=== PATIENT | female | born 1950 | race Caucasian/White ===

== ENCOUNTER → 2021-06-02 11:30 | Outpatient (BNVA) | payer OTHER, SELFPAY | PROVIDERS: PCP Family Medicine; Visit Provider Psychiatry & Neurology Neurology | DX: G24.3 Spasmodic torticollis (principal); R25.1 Tremor, unspecified | CPT/HCPCS: 64616; 99212; J0585 ==

== ENCOUNTER → 2022-02-27 09:18 | Outpatient (BNVA) | payer OTHER, MEDICAID, SELFPAY | PROVIDERS: PCP Family Medicine; Visit Provider Psychiatry & Neurology Neurology | DX: G24.3 Spasmodic torticollis (principal); R25.1 Tremor, unspecified | CPT/HCPCS: 64616; 99211; J0585 ==

== ENCOUNTER → 2022-05-21 11:09 | Outpatient (BNVA) | payer OTHER, MEDICAID, SELFPAY | PROVIDERS: PCP Hospitalist; Visit Provider Psychiatry & Neurology Neurology | DX: G24.3 Spasmodic torticollis (principal); R51.9 Headache, unspecified; F17.210 Nicotine dependence, cigarettes, uncomplicated | CPT/HCPCS: 64616; 99212; J0585 ==

== ENCOUNTER 2022-10-08 10:41 | Outpatient (AMB) | payer OTHER, MEDICAID, SELFPAY ==
[2022-10-08 11:08] VITALS: BP 110/88; PULSE 92; O2SAT 96; BMI 30.5
--- NOTE | 2022-10-08 11:08 | A.OFFVIS_ITS ---
Intake Vital Signs 10/08/22 11:08 Height 5 ft Weight 156 lb 4 oz BMI 30.5 BP 110/88 Blood Pressure Location Rt brachial Position Sitting Pulse 92 Pulse Source Pulse Oximeter Pulse Oximetry (%) 96 Oxygen Delivery Method Room Air Intake Visit Reasons: botox (b&b)-confirmed Intake Note: Pt presents as a f/u for botox. Station Baggage Agent Required: No Allergies aripiprazole [From Abilify] Allergy (Intermediate, Verified 10/08/22 11:11) RASH acetaminophen [From Percocet] Allergy (Unknown, Verified 10/08/22 11:11) FALLS clozapine [From Clozaril] Allergy (Unknown, Verified 10/08/22 11:11) ELEVATED WBC codeine [Codeine] Allergy (Unknown, Verified 10/08/22 11:11) FALL Penicillins Allergy (Unknown, Verified 10/08/22 11:11) RASH Sulfa (Sulfonamide Antibiotics) Allergy (Unknown, Verified 10/08/22 11:11) RASH From Percocet Allergy (Unknown, Uncoded 10/08/22 11:11) FALLS From Vistaril Allergy (Unknown, Uncoded 10/08/22 11:11) HIVES From Flexeril Adverse Reaction (Unknown, Uncoded 10/08/22 11:11) ATAXIA Medication List - Last Reconciled 10/16/22 by Ayleen Bach MD albuterol sulfate 90 mcg/actuation 2 puffs inhalation Q6H PRN atorvastatin 40 mg PO DAILY benztropine 1 mg orally 1tab qam and 2tabs qhs; cholecalciferol (vitamin D3) 50 mcg PO DAILY clonazepam 0.25 mg PO Q8H PRN duloxetine 30 mg PO DAILY duloxetine 60 mg PO BEDTIME fluticasone propionate 50 mcg/actuation (Allergy Relief (fluticasone)) 1 spray intranasal DAILY gabapentin 300 mg PO TID levothyroxine 75 mcg PO DAILY montelukast 10 mg PO DAILY onabotulinumtoxinA (Botox) 100 units IM [id number] 3 months valbenazine (Ingrezza) 80 mg PO DAILY HPI HPI Comments History of Present Illness Details 72y/o female comes for treatment of her cervical dystonia and follow up of her tardive dyskinesia . Her neck movements improved with Botox. Her tremors are worse. she noticed severe worsening when she stopped ingrezza and wants to restart. h/o exposure to neuroleptics she could not tolerate gabapentin - made her off balance and oozy.she decreased it to 300mg tid ? Side effects including spread of toxin effect, dysphagia, breathing difficulties , bronchitis etc was discussed in detail and the patient agreed to the procedure.An informed consent was obtained ??? Botulinum toxin type A 100units X 1 -was diluted with 2 cc of normal saline at a concentration of 25 units in 0.5cc saline. Lot number C [id number] expiration 10/2024 ??? Muscles injected ??? Cristopher Splenius - 25 units each ??? Cristopher levator 25 units each ? Total used 100 units PFSH Medical History COPD (chronic obstructive pulmonary disease) Depression Frequent headaches GERD (gastroesophageal reflux disease) Hyperlipidemia Spasmodic torticollis Tremors of nervous system Surgical History History of back surgery Hx of cervical spine surgery Hx of cholecystectomy Family History Father Cancer Mother Cancer Social History Household Members: None Alcohol intake: never Patient Tobacco Use Status: Current everyday Tobacco user Tobacco use type: Cigarette Cigarette Packs Per Day: 1 Physical Exam Vital Signs: Last Vital Signs Pulse 92 10/08/22 11:08 BP 110/88 10/08/22 11:08 Pulse Ox 96 10/08/22 11:08 Oxygen Delivery Method Room Air 10/08/22 11:08 BMI result Body Mass Index 30.5 Const General: cooperative, healthy appearing, comfortable and no acute distress Nutritional Appearance: average body habitus Orientation/consciousness: patient oriented x3 Neck Other: mild right laterocollis Neuro Other: high amplitude postural tremors cristopher UE perioral movements Tongue movements. General: patient oriented x3 and tone normal Cognition (Neuro): normal cognition Gait exam (Neuro): Normal gait present Assessment & Plan Assessment & Plan (1) Spasmodic torticollis: Code(s): G24.3 - Spasmodic torticollis (2) Tremors of nervous system: Code(s): R25.1 - Tremor, unspecified Plan Patient tolerated the procedure well she will call with any side effects Medications: Refilled valbenazine (Ingrezza) 80 mg PO DAILY 30 caps 6RF Coding Level of Care Code Est Pt Level 1 (19476) Diagnoses Spasmodic torticollis G24.3 Tremors of nervous system R25.1
== END 2022-10-08 11:31 | disposition home or self-care (01) ==
PROVIDERS: PCP Hospitalist; Visit Provider Psychiatry & Neurology Neurology
DX: G24.3 Spasmodic torticollis (principal); R25.1 Tremor, unspecified

== ENCOUNTER → 2022-10-08 10:41 | Outpatient (BNVA) | payer OTHER, MEDICAID, SELFPAY | PROVIDERS: PCP Hospitalist; Visit Provider Psychiatry & Neurology Neurology | DX: G24.3 Spasmodic torticollis (principal) | CPT/HCPCS: 99211 ==

== ENCOUNTER 2023-04-19 10:14 | Outpatient (AMB) | payer OTHER, SELFPAY ==
--- NOTE | 2023-04-19 10:26 | A.OFFVIS_ITS ---
Intake Vital Signs 04/19/23 10:29 Height 5 ft Weight 154 lb BMI 30.1 BP 144/82 H Blood Pressure Location Rt brachial Position Sitting Respiration 16 Pulse 76 Pulse Source Pulse Oximeter Pulse Oximetry (%) 94 Oxygen Delivery Method Room Air Intake Visit Reasons: botox (b&b)-LVM Intake Note: Pt presents for Botox Injections. Material Movers Required: No Allergies aripiprazole [From Abilify] Allergy (Intermediate, Verified 04/19/23 10:28) RASH acetaminophen [From Percocet] Allergy (Unknown, Verified 04/19/23 10:28) FALLS clozapine [From Clozaril] Allergy (Unknown, Verified 04/19/23 10:28) ELEVATED WBC codeine [Codeine] Allergy (Unknown, Verified 04/19/23 10:28) FALL Penicillins Allergy (Unknown, Verified 04/19/23 10:28) RASH Sulfa (Sulfonamide Antibiotics) Allergy (Unknown, Verified 04/19/23 10:28) RASH From Percocet Allergy (Unknown, Uncoded 04/19/23 10:28) FALLS From Vistaril Allergy (Unknown, Uncoded 04/19/23 10:28) HIVES From Flexeril Adverse Reaction (Unknown, Uncoded 04/19/23 10:28) ATAXIA Medication List - Last Reconciled 04/19/23 by Ayleen Bach MD albuterol sulfate 90 mcg/actuation 2 puffs inhalation Q6H PRN atorvastatin 40 mg PO DAILY benztropine 1 mg orally 1tab qam and 2tabs qhs; cholecalciferol (vitamin D3) 50 mcg PO DAILY clonazepam 0.25 mg PO Q8H PRN deutetrabenazine (Austedo Tardive Dys Titratn Pk (Week 1-2)) PO PER PKG DIR duloxetine 30 mg PO DAILY duloxetine 60 mg PO BEDTIME fluticasone propionate 50 mcg/actuation (Allergy Relief (fluticasone)) 1 spray intranasal DAILY levothyroxine 75 mcg PO DAILY montelukast 10 mg PO DAILY onabotulinumtoxinA (Botox) 100 units IM [id number] 3 months valbenazine (Ingrezza) 80 mg PO DAILY HPI HPI Comments History of Present Illness Details 73y/o female comes for treatment of her cervical dystonia and follow up of her tardive dyskinesia . Her neck movements improved with Botox. Her tremors are worse. she is on ingrezza and wnats to try austedo h/o exposure to neuroleptics she could not tolerate gabapentin - made her off balance and oozy.she decreased it to 300mg tid she missed her last appointment due to aillness ? Side effects including spread of toxin effect, dysphagia, breathing difficulties , bronchitis etc was discussed in detail and the patient agreed to the procedure.An informed consent was obtained ??? Botulinum toxin type A 100units X 1 -was diluted with 2 cc of normal saline at a concentration of 25 units in 0.5cc saline. Lot number C [id number] expiration 05/2025 ??? Muscles injected ??? Cristopher Splenius - 25 units each ??? Cristopher levator 25 units each ? Total used 100 units PFSH Medical History Tremors of nervous system Spasmodic torticollis Hyperlipidemia GERD (gastroesophageal reflux disease) Frequent headaches Depression COPD (chronic obstructive pulmonary disease) Surgical History Hx of cervical spine surgery History of back surgery Hx of cholecystectomy Family History Father Cancer Mother Cancer Social History Household Members: None Alcohol intake: never Patient Tobacco Use Status: Current everyday Tobacco user Tobacco use type: Cigarette Cigarette Packs Per Day: 1 Physical Exam Vital Signs: Last Vital Signs Pulse 76 04/19/23 10:29 Resp 16 04/19/23 10:29 BP 144/82 H 04/19/23 10:29 Pulse Ox 94 04/19/23 10:29 Oxygen Delivery Method Room Air 04/19/23 10:29 BMI result Body Mass Index 30.1 Const General: cooperative, healthy appearing, comfortable and no acute distress Nutritional Appearance: average body habitus Orientation/consciousness: patient oriented x3 Neck Other: mild right laterocollis Neuro Other: high amplitude postural tremors cristopher UE perioral movements Tongue movements. General: patient oriented x3 and tone normal Cognition (Neuro): normal cognition Gait exam (Neuro): Normal gait present Office Procedures Botulinum toxin Injection 55086 - Dystonia Procedure code (CPT) selection complete Office Meds onabotulinumtoxinA 100 unit solution for injection Performing Provider: Ayleen Bach MD Performing Location: [facility] [place] [facility] Administered by: Ayleen Bach MD on 04/19/23 10:51 Dose Route Admin Location Dispensed Lot Number Expiration Date [facility] Surveyor Chain Helper 100 unit IM 100 units [id number] 05/09/25 4272-4589-18 [employer]/BOTOX Comments: see HPI Assessment & Plan Assessment & Plan (1) Spasmodic torticollis: Code(s): G24.3 - Spasmodic torticollis (2) Tremors of nervous system: Code(s): R25.1 - Tremor, unspecified Plan Patient tolerated the procedure well she will call with any side effects Orders: Orders AMB Botulinum toxin Injection Today G24.3 - Spasmodic torticollis Medications: New deutetrabenazine (Austedo Tardive Dys Titratn Pk (Week 1-2)) PO PER PKG DIR 28 ea 0RF Coding Level of Care Code Est Pt Level 1 (86401) Diagnoses Spasmodic torticollis G24.3 Tremors of nervous system R25.1 CPT Codes Botox Injection - Botox 4: 95244 - Dystonia ([id number])
[2023-04-19 10:29] VITALS: BP 144/82; PULSE 76; RESP 16; O2SAT 94; BMI 30.1
== END 2023-04-19 10:57 | disposition home or self-care (01) ==
PROVIDERS: PCP Hospitalist; Visit Provider Psychiatry & Neurology Neurology
DX: G24.3 Spasmodic torticollis (principal)
CPT/HCPCS: 64616

== ENCOUNTER → 2023-04-19 10:14 | Outpatient (BNVA) | payer OTHER, SELFPAY | PROVIDERS: PCP Hospitalist; Visit Provider Psychiatry & Neurology Neurology | DX: G24.3 Spasmodic torticollis (principal); R25.1 Tremor, unspecified | CPT/HCPCS: 64616; 99211; J0585 ==

== ENCOUNTER 2023-07-20 10:44 | Outpatient (AMB) | payer OTHER, SELFPAY ==
--- NOTE | 2023-07-20 10:50 | A.OFFVIS_ITS ---
Vital Signs 07/20/23 10:52 Height 5 ft Weight 155 lb BMI 30.3 BP 118/72 Blood Pressure Location Rt brachial Position Sitting Respiration 16 Pulse 70 Pulse Source Pulse Oximeter Pulse Oximetry (%) 97 Oxygen Delivery Method Room Air Intake Visit Reasons: Botox - Confirmed Intake Note: Pt presents to the office for her Botox injections. Coloring Room Worker Required: No Allergies aripiprazole [From Abilify] Allergy (Intermediate, Verified 07/20/23 10:51) RASH acetaminophen [From Percocet] Allergy (Unknown, Verified 07/20/23 10:51) FALLS clozapine [From Clozaril] Allergy (Unknown, Verified 07/20/23 10:51) ELEVATED WBC codeine [Codeine] Allergy (Unknown, Verified 07/20/23 10:51) FALL Penicillins Allergy (Unknown, Verified 07/20/23 10:51) RASH Sulfa (Sulfonamide Antibiotics) Allergy (Unknown, Verified 07/20/23 10:51) RASH From Percocet Allergy (Unknown, Uncoded 04/19/23 10:28) FALLS From Vistaril Allergy (Unknown, Uncoded 04/19/23 10:28) HIVES From Flexeril Adverse Reaction (Unknown, Uncoded 04/19/23 10:28) ATAXIA Medication List - Last Reconciled 07/20/23 by Ayleen Bach MD albuterol sulfate 90 mcg/actuation 2 puffs inhalation Q6H PRN atorvastatin 40 mg PO DAILY benztropine 1 mg orally 1tab qam and 2tabs qhs; cholecalciferol (vitamin D3) 50 mcg PO DAILY clonazepam 0.25 mg PO Q8H PRN deutetrabenazine (Austedo Tardive Dys Titratn Pk (Week 1-2)) PO PER PKG DIR duloxetine 30 mg PO DAILY duloxetine 60 mg PO BEDTIME fluticasone propionate 50 mcg/actuation (Allergy Relief (fluticasone)) 1 spray intranasal DAILY levothyroxine 75 mcg PO DAILY montelukast 10 mg PO DAILY onabotulinumtoxinA (Botox) 100 units IM [id number] 3 months valbenazine (Ingrezza) 80 mg PO DAILY HPI Comments Details: 73y/o female comes for treatment of her cervical dystonia and follow up of her tardive dyskinesia . Her neck movements improved with Botox. Her tremors are worse. she is on ingrezza and wnats to try austedo h/o exposure to neuroleptics she could not tolerate gabapentin - made her off balance and oozy.she decreased it to 300mg tid she missed her last appointment due to aillness ? Side effects including spread of toxin effect, dysphagia, breathing difficulties , bronchitis etc was discussed in detail and the patient agreed to the procedure.An informed consent was obtained ??? Botulinum toxin type A 100units X 1 -was diluted with 2 cc of normal saline at a concentration of 25 units in 0.5cc saline. Lot number [id number] expiration 07/2025 ??? Muscles injected ??? Cristopher Splenius - 25 units each ??? Cristopher levator 25 units each ? Total used 100 units [facility] Medical History (Updated 07/20/23 @ 11:57 by Ayleen Bach MD) Tardive dyskinesia Tremors of nervous system Spasmodic torticollis Hyperlipidemia GERD (gastroesophageal reflux disease) Frequent headaches Depression COPD (chronic obstructive pulmonary disease) Surgical History Hx of cervical spine surgery History of back surgery Hx of cholecystectomy Family History Father Cancer Mother Cancer Social History Household Members: None Alcohol intake: never Patient Tobacco Use Status: Current everyday Tobacco user Tobacco use type: Cigarette Cigarette Packs Per Day: 1 Physical Exam Vital Signs: Last Vital Signs Pulse 70 07/20/23 10:52 Resp 16 07/20/23 10:52 BP 118/72 07/20/23 10:52 Pulse Ox 97 07/20/23 10:52 Oxygen Delivery Method Room Air 07/20/23 10:52 BMI result Body Mass Index 30.3 Const General: cooperative, healthy appearing, comfortable and no acute distress Nutritional Appearance: average body habitus Orientation/consciousness: patient oriented x3 Neck Other: mild right laterocollis Neuro Other: high amplitude postural tremors cristopher UE perioral movements Tongue movements. General: patient oriented x3 and tone normal Cognition (Neuro): normal cognition Gait exam (Neuro): Normal gait present Office Procedures Botulinum toxin Injection 81790 - Dystonia Procedure code (CPT) selection complete Office Meds onabotulinumtoxinA 100 unit solution for injection Performing Provider: Ayleen Bach MD Performing Location: [facility] [place] [facility] [place] [facility] Administered by: Ayleen Bach MD on 07/20/23 12:10 Dose Route Admin Location Dispensed Lot Number Expiration Date [employer] 100 unit IM 100 units [id number] 07/09/25 5949-5412-72 [employer]ERGAN/BOTOX Comments: see HPI Assessment & Plan Assessment & Plan (1) Spasmodic torticollis: Code(s): G24.3 - Spasmodic torticollis Category: Medical (2) Tremors of nervous system: Code(s): R25.1 - Tremor, unspecified Category: Medical (3) Tardive dyskinesia: Code(s): G24.01 - Drug induced subacute dyskinesia Category: Medical Plan Patient tolerated the procedure well she will call with any side effects Orders: Orders AMB Botulinum toxin Injection Today G24.3 - Spasmodic torticollis Medications: New onabotulinumtoxinA 100 units IM ONCE 1 ea 0RF spasmodic torticollis G24.3 - Spasmodic torticollis Coding Level of Care Code Est Pt Level 1 (82493) Diagnoses Spasmodic torticollis G24.3 Tremors of nervous system R25.1 Tardive dyskinesia G24.01 CPT Codes Botox Injection - Botox 4: 88458 - Dystonia ([id number])
[2023-07-20 10:52] VITALS: BP 118/72; PULSE 70; RESP 16; O2SAT 97; BMI 30.3
== END 2023-07-20 11:25 | disposition home or self-care (01) ==
PROVIDERS: PCP Hospitalist; Visit Provider Psychiatry & Neurology Neurology
DX: G24.3 Spasmodic torticollis (principal)
CPT/HCPCS: 64616

== ENCOUNTER → 2023-07-20 10:44 | Outpatient (BNVA) | payer OTHER, SELFPAY | PROVIDERS: PCP Hospitalist; Visit Provider Psychiatry & Neurology Neurology | DX: G24.3 Spasmodic torticollis (principal); G24.01 Drug induced subacute dyskinesia | CPT/HCPCS: 64616; 99211; J0585 ==

== ENCOUNTER 2023-12-20 08:23 | Outpatient (AMB) | payer OTHER, SELFPAY ==
[2023-12-20 08:24] VITALS: BMI 30.3
--- NOTE | 2023-12-20 08:24 | A.OFFVIS_ITS ---
Vital Signs 12/20/23 08:24 Height 5 ft Weight 155 lb BMI 30.3 Intake Visit Reasons: BOTOX Intake Note: Patient presents for botox Allergies aripiprazole [From Abilify] Allergy (Intermediate, Verified 12/20/23 08:28) RASH acetaminophen [From Percocet] Allergy (Unknown, Verified 12/20/23 08:28) FALLS clozapine [From Clozaril] Allergy (Unknown, Verified 12/20/23 08:28) ELEVATED WBC codeine [Codeine] Allergy (Unknown, Verified 12/20/23 08:28) FALL Penicillins Allergy (Unknown, Verified 12/20/23 08:28) RASH Sulfa (Sulfonamide Antibiotics) Allergy (Unknown, Verified 12/20/23 08:28) RASH From Percocet Allergy (Unknown, Uncoded 12/20/23 08:28) FALLS From Vistaril Allergy (Unknown, Uncoded 12/20/23 08:28) HIVES From Flexeril Adverse Reaction (Unknown, Uncoded 12/20/23 08:28) ATAXIA HPI Comments Details: 73y/o female comes for treatment of her cervical dystonia and follow up of her tardive dyskinesia . Her neck movements improved with Botox. Her tremors are worse. she is on ingrezza and wnats to try austedo h/o exposure to neuroleptics she could not tolerate gabapentin - made her off balance and oozy.she decreased it to 300mg tid she missed her last appointment due to aillness ? Side effects including spread of toxin effect, dysphagia, breathing difficulties , bronchitis etc was discussed in detail and the patient agreed to the procedure.An informed consent was obtained ??? Botulinum toxin type A 100units X 1 -was diluted with 2 cc of normal saline at a concentration of 25 units in 0.5cc saline. Lot number C [id number] expiration 07/2025 ??? Muscles injected ??? Cristopher Splenius - 25 units each ??? Cristopher levator 25 units each ? Total used 100 units [facility] Medical History Tardive dyskinesia Tremors of nervous system Spasmodic torticollis Hyperlipidemia GERD (gastroesophageal reflux disease) Frequent headaches Depression COPD (chronic obstructive pulmonary disease) Surgical History Hx of cervical spine surgery History of back surgery Hx of cholecystectomy Family History Father Cancer Mother Cancer Social History Household Members: None Alcohol intake: never Patient Tobacco Use Status: Current everyday Tobacco user Tobacco use type: Cigarette Cigarette Packs Per Day: 1 Physical Exam Vital Signs: BMI result Body Mass Index 30.3 Office Procedures Botulinum toxin Injection 72217 - Dystonia Procedure code (CPT) selection complete Office Meds onabotulinumtoxinA 100 unit solution for injection Performing Provider: Ayleen Bach MD Performing Location: [facility] [place] [facility] Administered by: Ayleen Bach MD on 12/21/23 15:43 Dose Route Admin Location Dispensed Lot Number Expiration Date [place] [employer] Director 100 unit IM 100 units [id number] [employer] Comments: see HPI Assessment & Plan Assessment & Plan (1) Spasmodic torticollis: Code(s): G24.3 - Spasmodic torticollis Category: Medical (2) Tremors of nervous system: Code(s): R25.1 - Tremor, unspecified Category: Medical (3) Tardive dyskinesia: Code(s): G24.01 - Drug induced subacute dyskinesia Category: Medical Plan Patient tolerated the procedure well she will call with any side effects Orders: Orders AMB Botulinum toxin Injection 12/20/23 G24.3 - Spasmodic torticollis Medications: New onabotulinumtoxinA 100 units IM ONCE 1 ea 0RF spasmodic torticollis G24.3 - Spasmodic torticollis Coding Level of Care Code Est Pt Level 1 (05260) Diagnoses Spasmodic torticollis G24.3 Tremors of nervous system R25.1 Tardive dyskinesia G24.01 CPT Codes Botox Injection - Botox 4: 25443 - Dystonia ([id number])
== END 2023-12-20 08:44 | disposition home or self-care (01) ==
PROVIDERS: PCP Hospitalist; Visit Provider Psychiatry & Neurology Neurology
DX: G24.3 Spasmodic torticollis (principal)
CPT/HCPCS: 64616

== ENCOUNTER → 2023-12-20 08:23 | Outpatient (BNVA) | payer OTHER, SELFPAY | PROVIDERS: PCP Hospitalist; Visit Provider Psychiatry & Neurology Neurology | DX: G24.3 Spasmodic torticollis (principal); G24.01 Drug induced subacute dyskinesia | CPT/HCPCS: 64616; 99211; J0585 ==

== ENCOUNTER 2024-11-14 09:00 | Outpatient (AMB) | payer OTHER, SELFPAY ==
--- NOTE | 2024-11-14 09:04 | A.OFFVIS_ITS ---
Vital Signs 11/14/24 09:05 Height 5 ft Weight 135 lb 6 oz BMI 26.4 BP 102/64 Blood Pressure Location Rt brachial Position Sitting Pulse 85 Pulse Source Pulse Oximeter Pulse Oximetry (%) 98 Oxygen Delivery Method Room Air Intake Visit Reasons: Botox Intake Note: Botox 100 Electrical Research Engineer Required: No Accompanied by: Self / Same As Patient Allergies aripiprazole (From Abilify) Allergy (Intermediate, Verified 11/14/24 09:04) RASH acetaminophen (From Percocet) Allergy (Unknown, Verified 11/14/24 09:04) FALLS clozapine (From Clozaril) Allergy (Unknown, Verified 11/14/24 09:04) ELEVATED WBC codeine (Codeine) Allergy (Unknown, Verified 11/14/24 09:04) FALL Penicillins Allergy (Unknown, Verified 11/14/24 09:04) RASH Sulfa (Sulfonamide Antibiotics) Allergy (Unknown, Verified 11/14/24 09:04) RASH From Percocet Allergy (Unknown, Uncoded 12/20/23 08:28) FALLS From Vistaril Allergy (Unknown, Uncoded 12/20/23 08:28) HIVES From Flexeril Adverse Reaction (Unknown, Uncoded 12/20/23 08:28) ATAXIA Medication List - Last Reconciled 11/14/24 by Ayleen Bach MD albuterol sulfate 90 mcg/actuation 2 puffs inhalation Q6H PRN atorvastatin 40 mg PO DAILY clonazepam 0.5 mg PO TID PRN deutetrabenazine ER (Austedo XR) 12 mg PO DAILY duloxetine 60 mg PO BEDTIME levothyroxine 50 mcg PO QAM metformin 500 mg PO BID omeprazole 20 mg PO DAILY HPI Comments Details: 74y/o female comes for treatment of her cervical dystonia and follow up of her tardive dyskinesia . Her neck movements improved with Botox. Her tremors are worse. she is on ingrezza and wnats to try austedo h/o exposure to neuroleptics she could not tolerate gabapentin - made her off balance and oozy.she decreased it to 300mg tid she missed her last appointment due to aillness ? Side effects including spread of toxin effect, dysphagia, breathing difficulties , bronchitis etc was discussed in detail and the patient agreed to the procedure.An informed consent was obtained ??? Botulinum toxin type A 100units X 1 -was diluted with 2 cc of normal saline at a concentration of 25 units in 0.5cc saline. Lot number [id number] expiration 12/2026 ??? Muscles injected ??? Cristopher Splenius - 25 units each ??? Cristopher levator 25 units each ? Total used 100 units PFSH Medical History Tardive dyskinesia Tremors of nervous system Spasmodic torticollis Hyperlipidemia GERD (gastroesophageal reflux disease) Frequent headaches Depression COPD (chronic obstructive pulmonary disease) Surgical History Hx of cervical spine surgery History of back surgery Hx of cholecystectomy Family History Father Cancer Mother Cancer Social History Household Members: None Alcohol intake: never Patient Tobacco Use Status: Current everyday Tobacco user Tobacco use type: Cigarette Cigarette Packs Per Day: 1 Physical Exam Vital Signs: Last Vital Signs Pulse 85 11/14/24 09:05 BP 102/64 11/14/24 09:05 Pulse Ox 98 11/14/24 09:05 Oxygen Delivery Method Room Air 11/14/24 09:05 BMI result Body Mass Index 26.4 Const General: cooperative, healthy appearing, comfortable and no acute distress Nutritional Appearance: average body habitus Orientation/consciousness: patient oriented x3 Neck Other: mild right laterocollis Neuro Other: high amplitude postural tremors cristopher UE perioral movements Tongue movements. General: patient oriented x3 and tone normal Cognition (Neuro): normal cognition Gait exam (Neuro): Normal gait present Office Procedures Botulinum toxin Injection 21356 - Dystonia Procedure code (CPT) selection complete Office Meds onabotulinumtoxinA 100 unit solution for injection Performing Provider: Ayleen Bach MD Performing Location: [facility] [place] [facility] Administered by: Ayleen Bach MD on 11/14/24 11:33 Dose Route Admin Location Dispensed Lot Number Expiration Date [facility] [employer] Botanist 100 unit IM 100 units [id number] [employer] /BOTOX Total Dispensed Waste 100 units 0 % Comments: see hpi Assessment & Plan Assessment & Plan (1) Spasmodic torticollis: Code(s): G24.3 - Spasmodic torticollis Category: Medical (2) Tremors of nervous system: Code(s): R25.1 - Tremor, unspecified Category: Medical (3) Tardive dyskinesia: Code(s): G24.01 - Drug induced subacute dyskinesia Category: Medical Plan Patient tolerated the procedure well she will call with any side effects Patient stopped ingrezza - i will trial her on austedo XR 12mg qd Orders: Orders AMB Botulinum toxin Injection Today G24.3 - Spasmodic torticollis Medications: New deutetrabenazine ER (Austedo XR) 12 mg PO DAILY 30 tabs 6RF Discontinued duloxetine Discontinued Reason: Doctor's Order 30 mg PO DAILY 30 caps 6RF Coding Level of Care Code Est Pt Level 1 (55441) Diagnoses Spasmodic torticollis G24.3 Tremors of nervous system R25.1 Tardive dyskinesia G24.01 CPT Codes Botox Injection - Botox 4: 55338 - Dystonia ([id number])
[2024-11-14 09:05] VITALS: BP 102/64; PULSE 85; O2SAT 98; BMI 26.4
--- OUTSIDE RECORDS SUMMARY | 2024-11-14 09:51 | XMS_ITS | Clinical Summary ---
Author Organization [facility] Address [address] [place] [id number] Phone Care Team Providers Care Executive Consultant Name Role Phone Mariella Reina MD Primary Care Provider [phone] Allergies Active Allergy Reactions Criticality Noted Date Comments Aspirin Itching 02/01/2024 Ketorolac 03/18/2018 Morphine 03/18/2018 Oxycodone Nausea And Vomiting 04/29/2017 Percocet Penicillins Nausea And Vomiting 04/27/2017 Propranolol Diarrhea 05/17/2020 Sulfa (Sulfonamide Antibiotics) Diarrhea,Nausea And Vomiting 04/27/2017 Tramadol Hallucinations 11/01/2017 Medications albuterol HFA (PROAIR HFA ; PROVENTIL HFA ; VENTOLIN HFA) 90 mcg/actuation inhaler INHALE 2 PUFFS BY MOUTH INTO THE lungs EVERY 4 HOURS NEEDED FOR WHEEZING 01/01/2021 Active benztropine (COGENTIN) 1 mg tablet Take 1 mg by mouth. 1 mg in AM and 2 mg in PM Active fluticasone-ume clidinium-vilan terol (Trelegy Ellipta) 100-62.5-25 mcg inhaler Inhale 1 Puff into the lungs daily. 3 inhalers and 3 refills 09/21/2023 Active gabapentin (NEURONTIN) 600 mg tablet Take 1 Tablet by mouth 3 times daily. Active levothyroxine (SYNTHROID, LEVOTHROID) 75 mcg tablet TAKE ONE TABLET BY MOUTH DAILY 08/14/2021 Active lumateperone (Caplyta) 21 mg capsule Take by mouth. Active lumateperone (Caplyta) 42 mg capsule Take by mouth. Active omeprazole (PriLOSEC) [address] capsule TAKE ONE CAPSULE BY MOUTH DAILY 08/19/2021 Active cholecalciferol (VITAMIN D-3) 50 mcg (2,000 unit) tablet TAKE ONE TABLET BY MOUTH DAILY 08/26/2021 Active cholecalciferol (VITAMIN D-3) 50 mcg (2,000 unit) tablet Take 1 Tablet by mouth daily. Active atorvastatin (LIPITOR) 40 mg tablet Take 1 tablet (40 mg total) by mouth 1 (one) time each day. 01/04/2024 Active DULoxetine (CYMBALTA) [address] capsule Take 1 capsule (60 mg total) by mouth at bedtime. at bedtime 01/20/2024 Active DULoxetine (CYMBALTA) [address] capsule Take 1 capsule (30 mg total) by mouth 1 (one) time each day. 01/20/2024 Active Ingrezza 80 mg capsule Take 80 mg by mouth 1 (one) time each day. 01/27/2024 Active ezetimibe (ZETIA) 10 mg tablet Take 1 tablet (10 mg total) by mouth 1 (one) time each day. 01/11/2024 Active clonazePAM (KlonoPIN) 0.5 mg tablet Take 1 tablet (0.5 mg total) by mouth 3 (three) times a day if needed for anxiety for up to 9 doses. Max Daily Amount: 1.5 mg 9 each 02/03/2024 Active nicotine (NICODERM CQ) 21 mg/[address] 1 patch on the skin 1 (one) time each day. 02/04/2024 Active lamoTRIgine (LaMICtal) 25 mg tablet Take 2 tablets (50 mg total) by mouth 1 (one) time each day. Take 50mg daily for 2 weeks Then take 50mg BID 02/04/2024 Active amLODIPine (NORVASC) 10 mg tablet Take 1 tablet (10 mg total) by mouth 1 (one) time each day. 02/03/2024 Active Active Problems Problem Noted Date Diagnosed Date Hyponatremia 02/01/2024 Insomnia 12/28/2023 Neck pain on right side 12/28/2023 Overview (12/28/2023): Last Assessment & Plan: 01/17/2021: Patient is status post fall 1 month ago, will go for C-spine flex ext films postop; thoracic x-rays to rule out compression fracture; and a right shoulder x-rays to rule out any fractures, OA. Her symptoms are more centered around the right shoulder, shoulder blade, upper torso >neck, patient could have shoulder issue that will require referral to Ortho, possibly need right shoulder MRI. If she has persistent neck and right arm pain, she will likely need an updated MRI C-spine. She did not want to go for physical therapy at this time, no prescription given. Vitamin D insufficiency 12/28/2023 Urinary tract infection 09/09/2022 Overview (12/28/2023): per [id number] PCP note Pancreatic cyst 05/20/2021 Tardive dyskinesia 05/20/2021 Shoulder pain, right 01/17/2021 Earache 01/17/2020 Varicose veins with pain 03/18/2018 Gastroesophageal reflux disease 12/09/2017 Bipolar 1 disorder ([facility] V24, [facility] V28) Chronic obstructive pulmonar y disease ([facility] V24, [facility] V28) 10/28/2017 Degenerative disc disease, lumbar 10/28/2017 Overview (12/28/2023): f/u [facility]SS[facility] dr. Garvin- MRI lumbar 04/28/18 Hyperlipidemia 10/28/2017 Hypertension 10/28/2017 Hypothyroidism 10/28/2017 Iron deficiency 10/28/2017 Low back pain 10/28/2017 Type 2 diabetes mellitus wit h neurological manifestations ([facility] V24, [facility] V28) 10/28/2017 Morfin's esophagus 08/12/2017 Peripheral neuropathy 08/12/2017 Allergic rhinitis 06/28/2017 Anxiety and depression 06/28/2017 Pulmonary nodules 02/02/2017 Tubular adenoma of colon 03/15/2015 Immunizations Immunization Administration Dates Next Due Influenza trivalent, 0.5mL ( Fluad) 65yo and older 10/20/2018,10/28/2017,11/09/2016,01/17 Influenza trivalent, 0.5mL, preservative free (Fluarix; FluLaval; Fluzone) ages 6mo and older (Afluria) 3 years and older 11/19/2015,11/16/2012 Influenza, Unspecified 11/25/2020 Moderna SARS-CoV-2 COVID-19, mRNA, LNP-S, preservative free 11/25/2020,03/29/2020 Pneumococcal conjugate 13 va lent (Prevnar 13, PCV13) 2mo and older 12/13/2019,09/30/2016 Pneumococcal polysaccharide 23 valent (Pneumovax 23) 2yo and older 10/13/2018,11/19/2015,01/17/2014 Zoster Live 01/17/2014 Surgical History Surgery Date Site/Laterality Comments OTHER SURGICAL HISTORY 10/2016 PROCEDURE: [place] ANESTHESIA LUMBAR REGION NOS; COMMENT: Left L4-L5 minimally invasive decompression 10-27-16 Dr. Simpson NECK SURGERY 2018 PROCEDURE: HISTORICAL NECK SURGERY; COMMENT: Dr. Simpson OTHER SURGICAL HISTORY N/A PROCEDURE: [place] LAMNOTMY INCL W/DCMPRSN NRV ROOT 1 INTRSPC CERVC; COMMENT: Right C6-7 foraminotomy diskectomy 06-30-18 Dr. Simpson CHOLECYSTECTOMY 1980 N/A PROCEDURE: HISTORICAL CHOLECYSTECTOMY OTHER SURGICAL HISTORY 05/28/2022 PROCEDURE: OUTSIDE ENDOSCOPY; COMMENT: Dr. Grimes @ [facility] Medical History Medical History Date Comments History of pulmonary embolism 12/04/2017 DX :History of pulmonary embolism; COMMENT: pt does not recall this history or use of blood thinners in past Allergic rhinitis 06/28/2017 DX:Allergic rh initis Morfin's esophagus 08/12/2017 DX:Morfin's esophagus Bipolar 1 disorder ([facility] V24, [facility] V28) 10/28/2017 DX:Bipolar 1 disorder (HCC) Degenerative disc disease, lumbar 10/28/2017 DX:Degenerative disc disease, lumbar; COMMENT: f/u [facility] dr. Garvin- MRI lumbar 04/28/18 Chronic obstructive pulmonar y disease ([facility] V24, [facility] V28) 10/28/2017 DX:Chronic obstructive pulm onary disease ([facility]) Hyperlipidemia 10/28/2017 DX:Hyperlipidemi a Hypertension 10/28/2017 DX:Hypertension; COMMENT: BP meds d/c'd for normal BP 2020 Hypothyroidism 10/28/2017 DX:Hypothyroidis m Iron deficiency 10/28/2017 DX:Iron deficien cy Peripheral neuropathy 08/12/2017 DX:Periphe ral neuropathy Pulmonary nodules 02/02/2017 DX:Pulmonary n odules Tubular adenoma of colon 03/15/2015 DX:Tubu lar adenoma of colon Type 2 diabetes mellitus wit h neurological manifestations ([facility] V24, [facility] V28) 10/28/2017 DX:Type 2 diabetes mellitus with neurological manifestations ([facility]); COMMENT: controlled off meds Gastroesophageal reflux disease 12/09/2017 DX:Gastroesophageal reflux disease Anxiety and depression 06/28/2017 DX:Anxiet y and depression; COMMENT: h/o ECT tx Neck pain on right side DX:Neck pain on right side Insomnia DX:Insomnia Tobacco abuse disorder DX:Tobacc o abuse disorder Vitamin D insufficiency DX:Vitam in D insufficiency Parkinson's disease ([facility] V24, [facility] V28) DX:Parkinson's disease ([facility]) ; COMMENT: dx by Dr. 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 DX:Mononeuropath y; COMMENT: per [id number] PCP note Back pain 09/09/2022 DX:Back pain; CO MMENT: per [id number] PCP note Nicotine dependence 09/09/2022 DX:Nicotine dependence; COMMENT: per [id number] PCP note Urinary tract infection 09/09/2022 DX:Urina ry tract infection; COMMENT: per [id number] PCP note UTI Septic 2018 and 2021 Pneumonia 09/09/2022 DX:Pneumonia; CO MMENT: per [id number] PCP note Covid 09/09/2022 DX:COVID; COMMEN T: per [id number] PCP note Family History Medical History Relation Name Comments Esophageal cancer Brother 1 In hospice Other cancer Brother 2 Pt states multi ple cancers, in hospice Prostate cancer Father Lung cancer Mother Relation Name Status Comments Brother 1 Brother 2 Alive Father Mother Social History Tobacco Use Types Packs/Day Years Used Date Smoking Tobacco: Every Day Cigarettes 1 62.9 Started: 12/09/1961 Smokeless Tobacco: Never Alcohol Use Standard Drinks/Week Comments No 0 (1 standard drink = 0.6 oz pur e alcohol) Interpersonal Safety Answer Date Record ed Physical Abuse Unrecognized value 02/01/2024 Verbal Abuse Unrecognized value 02/01/2024 Comments Unknown Sex and Gender Information Value Date Recorded Sex Assigned at Not on file Legal Sex Female 4:41 AM EST Gender Identity Not on file Sexual Orientation Not on file Obstetrics History Last Filed Vital Signs Vital Sign Reading Time Taken Comments Blood Pressure 110/66 07/02/2024 6:57 PM EDT Pulse 71 07/02/2024 6:57 PM EDT Temperature 36.6 C (97.9 F) 07/02/2024 6:57 PM EDT Respiratory Rate 15 07/02/2024 6:57 PM EDT Oxygen Saturation 100% 07/02/2024 6:57 PM EDT Inhaled Oxygen Concentration - - Weight 65.8 kg (145 lb) 07/02/2024 4:22 PM EDT Height 152.4 cm (5') 07/02/2024 4:22 PM EDT Body Mass Index 28.32 07/02/2024 4:22 PM EDT Plan of Treatment Health Maintenance Due Date Last Done Comments Breast Cancer Screening 1950 Diabetes: Annual Foot Exam 1961 Diabetes: Annual Retina Eye Exam 1961 DTaP,Tdap,and Td Vaccines (2 - Tdap) 02/09/2010 02/10/2000 Medicare Annual Wellness Visit 01/17/2022 Osteoporosis Screening (Bone Density Screening) 01/17/2022 Social Influencers of Health Screening 01/17/2022 Diabetes: Annual Urine Albumin-Creatinine Ratio (uACR) 01/24/2022 01/20/2021 Diabetes: Blood Sugar Control Test (HGBA1C) 01/24/2022 01/13/2021 Lung Cancer Screening (Low Dose CT) 12/20/2023 12/19/2022 Depression Screening 02/09/2024 Colorectal Cancer Screening: Colonoscopy 03/07/2024 03/07/2019 COVID-19 Vaccine ( season) 2024 11/09/2022, 11/19/2021, 05/29/2021, Additional history exists Influenza Vaccine (#1) 2024 , 11/21/2022, 11/06/2021, Additional history exists Falls Risk Assessment 02/03/2025 02/04/2024 Diabetes: Annual GFR (Glomerular Filtration Rate) 07/02/2025 07/02/2024, 02/05/2024, 02/03/2024, Additional history exists Hypertension/CHF/CAD Annual BMP Blood Test 07/02/2025 07/02/2024, 02/05/2024, 02/03/2024, Additional history exists Cholesterol Screening (Lipid Panel) 01/13/2026 01/13/2021 Pneumococcal Vaccine: 50+ Years Completed 11/08/2020, 12/13/2019, 10/13/2018, Additional history exists Hepatitis C Screening Completed 01/13/2021 Zoster Vaccines Completed 02/17/2022, 11/08, 01/17/2014 RSV Immunization Adult Patients Completed 12/05/2022 HIB Vaccines Aged Out No longer eligi ble based on patient's age to complete this topic HPV Vaccines Aged Out No longer eligi ble based on patient's age to complete this topic Hepatitis A Vaccines Aged Out No long er eligible based on patient's age to complete this topic Hepatitis B Vaccines Aged Out No long er eligible based on patient's age to complete this topic IPV Vaccines Aged Out No longer eligi ble based on patient's age to complete this topic MMR Vaccines Aged Out No longer eligi ble based on patient's age to complete this topic Meningococcal ACWY Vaccine Aged Out N o longer eligible based on patient's age to complete this topic Meningococcal B Vaccine Aged Out No l onger eligible based on patient's age to complete this topic RSV Immunization Patients Under 20 months Aged Out No longer eligible based on patient's age to complete this topic Varicella Vaccines Aged Out No longer eligible based on patient's age to complete this topic Procedures Procedure Name Priority Date/Time Associated Diagnosis Comments COMPREHENSIVE METABOLIC PANEL STAT 07/02/2024 4:[address] LUNG SCREENING LOW DOSE Routine 12/19/2022 1:13 PM EST Nicotine dependence, cigarettes, uncomplicated URINE ALBUMIN CREATININE RATIO Routine 01/20/2021 HM HEPATITIS C SCREENING Routine 01/13/2021 HEMOGLOBIN A1C Routine 01/13/2021 LIPID PANEL Routine 01/13/2021 HM COLONOSCOPY Routine 03/07/2019 from Last 3 Months or Most Recently Relevant to Health Maintenance Results * Comprehensive metabolic panel (07/02/2024 4:30 PM EDT) Sodium 135 133 - 145 mmol/L LAB CHEMISTRY METHOD 07/02/2024 5:14 PM [facility] Potassium 4.1 3.5 - 5.5 mmol/L LAB CHEMISTRY METHOD 07/02/2024 5:14 PM [facility] Chloride 105 96 - 110 mmol/L LAB CHEMISTRY METHOD 07/02/2024 5:14 PM [facility] CO2 22 21 - 32 mmol/L LAB CHEMISTRY METHOD 07/02/2024 5:14 PM [facility] Anion Gap 8 3 - 11 LAB CHEMISTRY METHOD 07/02/2024 5:14 PM [facility] Glucose 89 70 - 100 mg/dL LAB CHEMISTRY METHOD 07/02/2024 5:14 PM [facility] BUN 9 5 - 25 mg/dL LAB CHEMISTRY METHOD 07/02/2024 5:14 PM [facility] Creatinine 0.80 0.50 - 1.10 mg/dL LAB CHEMISTRY METHOD 07/02/2024 5:14 PM [facility] eGFR 78 >=60 mL/min/1. 73m2 LAB CHEMISTRY METHOD 07/02/2024 5:14 PM [facility] Comment:Calculation based on the Chronic Kidney Disease Epidemiology Collaboration (CKD-EPI) equation refit without adjustment for race. BUN/Creatinine Ratio 11.3 LAB CHEMISTRY METHOD 07/02/2024 5:14 PM EDT [facility] Calcium 9.4 8.5 - 10.5 mg/dL LAB CHEMISTRY METHOD [facility] AST (SGOT) 14 10 - 42 unit/L LAB CHEMISTRY METHOD 07/02/2024 5:14 PM EDT [facility] ALT (SGPT) 23 10 - 60 unit/L LAB CHEMISTRY METHOD 07/02/2024 5:14 PM T [facility] Alkaline Phosphatase 85 42 - 121 unit/L LAB CHEMISTRY METHOD 07/02/2024 5:14 PM [facility] Total Protein 7.0 6.0 - 8.0 g/dL LAB CHEMISTRY METHOD 07/02/2024 5:14 PM [facility] Albumin 3.7 3.2 - 5.0 g/dL LAB CHEMISTRY METHOD 07/02/2024 5:14 PM [facility] Total Bilirubin 0.6 0.0 - 1.4 mg/dL LAB CHEMISTRY METHOD 07/02/2024 5:14 PM T [facility] Blood Venous blood specimen / Unknown Venipuncture / Unknown 07/02/2024 4:30 PM EDT 07/02/2024 4:48 PM EDT us Eloise Marsh DO LAB BLOOD ORDERABLES Hattie l Result [facility] [address] [place] [address], * CT LUNG SCREENING LOW DOSE (12/19/2022 1:13 PM EST) Anatomical Region Laterality Modality Computed Tomogra phy 12/14/2022 10:5 4 AM EST Narrative 12/19/2022 1:13 PM [facility] Diagnostic Imaging Department [address] [place] [id number] Patient: ROSALINDA ROGERS /Age/Sex: 1950 - 72 - F Unit#: [id number] Location/Status: SPDICATLS/REG CLI Mnemonic/[facility] Ordering Physician: KAILEE ADAM MD CT Lung Screening Low Dose - 12/14/22 - 3 Report Status:Signed PROCEDURE: Chest CT INDICATION: Current smoker, 50 pack year smoking history, current smoker TECHNIQUE: Chest CT without contrast. Multi planar reformats were created and interpreted. The examination was performed utilizing dose reduction techniques. COMPARISON: Chest CT 09/07/2017 FINDINGS: LUNGS/PLEURA: Central airways are patent. Severe emphysema. Calcified left lower lobe granulomas. 4 mm nodule in the left upper lobe near the mediastinum is stable compared to 2018. No suspicious pulmonary nodules. No pleural effusion or pneumothorax.. MEDIASTINUM: Thyroid gland is small and normal. No mediastinal or hilar lymphadenopathy. Esophagus is normal. Cardiac chambers are normal in size. Moderate coronary artery calcifications. Moderate aorta calcifications. No pericardial effusion. CHEST WALL: No axillary lymphadenopathy or superficial hematoma. UPPER ABDOMEN:Hepatic steatosis. Scattered hepatic cysts. Nodular liver contour suggests cirrhosis. BONES: No acute fracture. Scattered degenerative changes seen throughout the bones. IMPRESSION: No suspicious pulmonary nodules. Lung RADS 2-benign. Recommend continued screening low-dose chest CT in 12 months. Dictating Physician: FAM FLOYD MD Electronically Signed by: FAM FLOYD MD Dic Date/Time: 12/19/22 1302 Sign date/Time: 12/19/22 1313 Procedure Note Fam Floyd G - 03/16/2023 [facility] Diagnostic Imaging Department [address] [place] [id number] Patient: ROSALINDA ROGERS /Age/Sex: 1950 - 72 - F Unit#: [id number] Location/Status: [facility] CLI Mnemonic/Ordering Site: [facility] Ordering Physician: KAILEE ADAM MD CT Lung Screening Low Dose - 12/14/22 - 1103 Report Status:Signed PROCEDURE: Chest CT INDICATION: Current smoker, 50 pack year smoking history, current smoker TECHNIQUE: Chest CT without contrast. Multi planar reformats were createdand interpreted. The examination was performed utilizing dose reductiontechniques. COMPARISON: Chest CT 09/07/2017 FINDINGS: LUNGS/PLEURA: Central airways are patent. Severe emphysema. Calcifiedleft lower lobe granulomas. 4 mm nodule in the left upper lobe near themediastinum is stable compared to 2018. No suspicious pulmonary nodules. Nopleural effusion or pneumothorax.. MEDIASTINUM: Thyroid gland is small and normal. No mediastinal or hilar lymphadenopathy. Esophagus is normal. Cardiac chambers are normal insize. Moderate coronary artery calcifications. Moderate aorta calcifications.No pericardial effusion. CHEST WALL: No axillary lymphadenopathy or superficial hematoma. UPPER ABDOMEN:Hepatic steatosis. Scattered hepatic cysts. Nodularliver contour suggests cirrhosis. BONES: No acute fracture. Scattered degenerative changes seen throughoutthe bones. IMPRESSION: No suspicious pulmonary nodules. Lung RADS 2-benign. Recommendcontinued screening low-dose chest CT in 12 months. Dictating Physician: FAM FLOYD MD Electronically Signed by: FAM FLOYD MD Dic Date/Time: 12/19/22 1302 Sign date/Time: 12/19/22 1313 Result [facility] Kailee Adam MD IMG CT PROCEDURES Final Result * Urine Albumin Creatinine Ratio (01/20/2021) Pathologist [facility] Urine Albumin Creatinine Ratio Abstracted Result [facility] Provider HEALTH MAINTENANCE Final Result * Hepatitis C Screening (01/13/2021) [facility] Hepatitis C Screening Abstracted Result [facility] Provider HEALTH MAINTENANCE Final Result * (ABNORMAL) Hemoglobin A1c (01/13/2021) [facility] Hemoglobin A1C 7.3(A) <=6.5 % Blood Venous blood specimen / Unknown Result [facility] Provider LAB BLOOD ORDERABLES Hattie l Result * (ABNORMAL) Lipid panel (01/13/2021) [facility] LDL/HDL Ratio 7(A) 0 - 4 Triglycerides 458(A) 0 - 150 mg/dL Cholesterol 256(A) 0 - 200 mg/dL HDL 39 >=39 mg/dL LDL Cholesterol 126(A) 0 - 100 mg/dL Blood Venous blood specimen / Unknown Result [facility] Provider LAB BLOOD ORDERABLES Hattie l Result * Colonoscopy (03/07/2019) [facility] Colonoscopy No Interpretation , Abstracted Anatomical Region Laterality Modality Other Result [facility] Provider HEALTH MAINTENANCE Final Result from Last 3 Months or Most Recently Relevant to Health Maintenance Insurance [facility] MEDICARE Member Subscriber Plan / Payer (Ef fective 2016-Present) Name:ROSALINDA ROGERS Relation to Subscriber:Self Name:Rosalinda Rogers Payer ID:[id number] Group ID:[id number] Type:Not on file Address: [address] [facility] [place] [id number] Advance Directives Documents on File Type Date Recorded Patient Charge Nurse Expl anation Health Care Decision (hx) 03/22/2021 AD HERRMANN DIRECTIVE Health Care Decision (hx) 03/22/2021 AD HERRMANN DIRECTIVE Health Care Decision (hx) 03/22/2021 AD HERRMANN DIRECTIVE Health Care Decision (hx) 03/22/2021 AD HERRMANN DIRECTIVE Health Care Decision (hx) 03/22/2021 AD HERRMANN DIRECTIVE Health Care Decision (hx) 03/22/2021 AD HERRMANN DIRECTIVE Health Care Decision (hx) 03/22/2021 AD HERRMANN DIRECTIVE Health Care Decision (hx) 03/22/2021 Mireya YungCarl overton Araceli ADVANCE DIRECTIVE * Full Code - Default (Latest Code Status on File) Date Activated Date Inactivated Comments 02/01/2024 3:40 AM 02/04/2024 4:31 PM This is or mary is used when code status has not been discussed with the patient, or code status is otherwise unknown/unconfirmed To update the patient's code status, place a code status order. Do not modify or discontinue any currently active code status orders. Healthcare Agents on File Name Relationship Healthcare Agent Relationshi p Communication Mireya Charles Daughter First Alternate Health Care Agent Marshall Charles Son Second Alternate Health Care Agent Care Teams Executive Consultant Relationship Specialty Start Date End Date Mariella Reina MD [address] [place] [phone] PCP - General Internal Medicine 10/07/21
--- OUTSIDE RECORDS SUMMARY | 2024-11-14 09:51 | XMS_ITS | Patient Health Record ---
Author Organization [email or web address] Address [address] [place] [address] Care Team Providers Care Bait Digger Name Role Phone TREV GIBSON Primary Care Provider [phone] Soenrico Mojgan Unavailable [phone] Abdoul Sharpe Unavailable [phone] Allergies Allergen (clinical drug ingredient) Drug/Non Drug Allergy documented on EMR Reaction Allergy Type Onset Date Status tramadol traMADol HCl anaphylaxis Drug Allergy Ac tive Results Component Value Reference Range Notes BASIC METABOLIC PANEL (BMP) Reviewed date:11/15/2023 11:56:27 AM Interpretation: Performing Lab: Notes/Report: Original Ordering Provider: KARLA ARRIOLA MD [employer], [place] [address] Whipped Topping Supervisor - Akua Weathers MD GLUCOSE 88 70-100 mg/dL Reference range applicable to fasting specimens only BUN 13 5-25 mg/dL CREAT 0.88 0.5-1.1 mg/dL GLOMERULAR FILTRATION RATE 70 >60 This eGFR result was calculated using the CKD-EPI 2020 Creatinine Equation SODIUM 140 135-145 mEq/L POTASSIUM 4.4 3.5-5.5 mmol/L CHLORIDE 109 96-110 mmol/L CO2 25 21-32 mmol/L ANION GAP 6 3-11 CALCIUM 9.7 8.5-10.5 mg/dL CBC Reviewed date:11/15/2023 11:56:22 AM Interpretation: Performing Lab: Notes/Report: Original Ordering Provider: KARLA ARRIOLA MD [employer], [place] [address] Whipped Topping Supervisor - Akua Weathers MD WBC 8.4 4.8-10.8 x10-3/uL RBC 4.5 3.8-4.8 x10-6/uL HEMOGLOBIN 12.7 11.5-16.0 g/dL HEMATOCRIT 40.2 35-47 % MCV 88.7 79-98 fL MCH 28.0 27-32 pg MCHC 31.6 32-37 g/dL RDW 14.2 11-15 % PLT COUNT 390 130-400 x10-3/uL MEAN PLATELET VOLUME 9.3 7-11 fL NRBC % AUTO 0.0 <1 % NRBC # AUTO 0.00 <0.1 x10-3/uL CBC Reviewed date:11/22/2023 11:48:27 AM Interpretation: Performing Lab: Notes/Report: Original Ordering Provider: KARLA ARRIOLA MD [employer], [place] [address] Whipped Topping Supervisor - Akua Weathers MD WBC 11.0 4.8-10.8 x10-3/uL RBC 4.8 3.8-4.8 x10-6/uL HEMOGLOBIN 13.4 11.5-16.0 g/dL HEMATOCRIT 42.6 35-47 % MCV 88.8 79-98 fL MCH 27.9 27-32 pg MCHC 31.5 32-37 g/dL RDW 14.2 11-15 % PLT COUNT 419 130-400 x10-3/uL MEAN PLATELET VOLUME 9.6 7-11 fL NRBC % AUTO 0.0 <1 % NRBC # AUTO 0.00 <0.1 x10-3/uL BASIC METABOLIC PANEL (BMP) Reviewed date:11/22/2023 11:48:22 AM Interpretation: Performing Lab: Notes/Report: Original Ordering Provider: KARLA ARRIOLA MD [employer], [place] [address] Whipped Topping Supervisor - Akua Weathers MD GLUCOSE 101 70-100 mg/dL Reference range applicable to fasting specimens only BUN 14 5-25 mg/dL CREAT 0.89 0.5-1.1 mg/dL GLOMERULAR FILTRATION RATE 69 >60 This eGFR result was calculated using the CKD-EPI 2020 Creatinine Equation SODIUM 140 135-145 mEq/L POTASSIUM 5.2 3.5-5.5 mmol/L CHLORIDE 107 96-110 mmol/L CO2 27 21-32 mmol/L ANION GAP 6 3-11 CALCIUM 9.7 8.5-10.5 mg/dL CULTURE BLOOD Reviewed date:07/09/2024 11:37:49 AM Interpretation: Performing Lab: Notes/Report: Culture, Blood No growth at 5 days CULTURE BLOOD Reviewed date:07/09/2024 11:37:57 AM Interpretation: Performing Lab: Notes/Report: Culture, Blood No growth at 5 days Anti-Nuclear Ab by IFA (RDL) -[id number] Reviewed date:03/19/2024 09:39:55 AM Interpretation: Performing Lab:[facility] [place], [address] [place] [address] Avenue, [place], Phone - [phone], Director - Russel Notes/Report: Test(s) 827710-Tmwv-Tozgtzj Ab by IFA (RDL); 982371- Homogeneous Pattern; 739932-Ynfoteprk Pattern; 587364- Speckled Pattern; 362466-Rideortpod Pattern; 827112- Spindle Apparatus Pattern; 551703-Lnkabfi Membrane Pattern; 040497- Midbody Pattern; 409193-Lnljwmh Dot Pattern; 048709-SSMF Pattern; 272659-Unigumceu Pattern was developed and its performance characteristics determined by [facility]. It has not been cleared or approved by the Food and Drug Administration. Test(s) 957326-Zecb, Plasma or Serum was developed and its performance characteristics determined by [facility]. It has not been cleared or approved by the Food and Drug Administration. Test(s) 569626-Cqhp-Hbhlxay Ab by IFA (RDL); 064302- Homogeneous Pattern; 558437-Ldstyuuaw Pattern; 729980- Speckled Pattern; 082649-Akdogznotb Pattern; 522753- Spindle Apparatus Pattern; 933186-Pbwdohc Membrane Pattern; 287188- Midbody Pattern; 962942-Dzyorhh Dot Pattern; 031776-CBSK Pattern; 633075-Vcwtwanxj Pattern was developed and its performance characteristics determined by [facility]. It has not been cleared or approved by the Food and Drug Administration. Test(s) 960123-Owte, Plasma or Serum was developed and its performance characteristics determined by [facility]. It has not been cleared or approved by the Food and Drug Administration. Anti-Nuclear Ab by IFA (RDL) Positive Negative Speckled Pattern 1:40 <1:40 Note: LATISHA performed b y Indirect Fluorescent Antibody (IFA) Basic Metabolic Panel (8)-[id number] Reviewed date:03/19/2024 09:40:03 AM Interpretation: Performing Lab:Juan Bolaños, [address] [facility], [place], Phone - [phone], Director - [facility] Notes/Report: Test(s) 396009-Yyxg-Xysexwh Ab by IFA (RDL); 184721- Homogeneous Pattern; 931901-Calqpaisw Pattern; 390240- Speckled Pattern; 467223-Hrvcbrildz Pattern; 644653- Spindle Apparatus Pattern; 785664-Sozdozu Membrane Pattern; 247081- Midbody Pattern; 409466-Njjfcah Dot Pattern; 823166-JHWX Pattern; 424809-Ggzzquhsh Pattern was developed and its performance characteristics determined by [facility]. It has not been cleared or approved by the Food and Drug Administration. Test(s) 765769-Fpmg, Plasma or Serum was developed and its performance characteristics determined by [facility]. It has not been cleared or approved by the Food and Drug Administration. Glucose 86 70-99 mg/dL BUN 11 8-27 mg/dL Creatinine 0.84 0.57-1.00 mg/dL eGFR 73 >59 mL/min/1.73 BUN/Creatinine Ratio 13 12-28 Sodium 138 134-144 mmol/L Potassium 4.4 3.5-5.2 mmol/L Chloride 102 96-106 mmol/L Carbon Dioxide, Total 20 20-29 mmol/L Calcium 9.7 8.7-10.3 mg/dL Comp. Metabolic Panel (14)-3 [id number] Reviewed date:08/03/2024 10:42:40 AM Interpretation: Performing Lab:[facility], [address], [place], Phone - [phone], Director - [facility] Notes/Report: Glucose 95 70-99 mg/dL BUN 8 8-27 mg/dL Creatinine 0.75 0.57-1.00 mg/dL eGFR 84 >59 mL/min/1.73 BUN/Creatinine Ratio 11 12-28 Sodium 136 134-144 mmol/L Potassium 4.5 3.5-5.2 mmol/L Chloride 100 96-106 mmol/L Carbon Dioxide, Total 21 20-29 mmol/L Calcium 9.7 8.7-10.3 mg/dL Protein, Total 7.2 6.0-8.5 g/dL Albumin 4.6 3.8-4.8 g/dL Globulin, Total 2.6 1.5-4.5 g/dL Bilirubin, Total 0.8 0.0-1.2 mg/dL Alkaline Phosphatase 95 44-121 IU/L AST (SGOT) 33 0-40 IU/L ALT (SGPT) 27 0-32 IU/L Lipid Panel-[id number] Reviewed date:08/03/2024 10:42:56 AM Interpretation: Performing Lab:[facility] [place], [address] [place] [address], Phone - [phone], Director - [facility] Notes/Report: Cholesterol, Total 129 100-199 mg/dL Triglycerides 212 0-149 mg/dL HDL Cholesterol 45 >39 mg/dL VLDL Cholesterol Samson 34 5-40 mg/dL LDL Chol Calc (NIH) 50 0-99 mg/dL TSH+Free [id number] Reviewed date:08/04/2024 03:43:26 PM Interpretation: Performing Lab:[facility] [place], [address] [place] [address], Phone - [phone], Director - [facility] Notes/Report: TSH 0.277 0.450-4.500 uIU/mL T4,Free(Direct) 1.18 0.82-1.77 ng/dL CBC With Differential/Platel et-[id number] Reviewed date:03/19/2024 09:43:34 AM Interpretation: Performing Lab:[facility] [address], Phone - [phone], Director - [facility] Notes/Report: Test(s) 180749-Sbad-Dggkuvx Ab by IFA (RDL); 204231- Homogeneous Pattern; 525306-Looflibzq Pattern; 717880- Speckled Pattern; 025795-Zpzbjnzxdw Pattern; 545827- Spindle Apparatus Pattern; 453233-Wuyeeyd Membrane Pattern; 473928- Midbody Pattern; 851446-Cfnfrla Dot Pattern; 486357-HNDJ Pattern; 506505-Lvyrtjiee Pattern was developed and its performance characteristics determined by [facility]. It has not been cleared or approved by the Food and Drug Administration. Test(s) 593630-Psmf, Plasma or Serum was developed and its performance characteristics determined by [facility]. It has not been cleared or approved by the Food and Drug Administration. WBC 7.6 3.4-10.8 x10E3/uL RBC 4.82 3.77-5.28 x10E6/uL Hemoglobin 13.1 11.1-15.9 g/dL Hematocrit 41.1 34.0-46.6 % MCV 85 79-97 fL MCH 27.2 26.6-33.0 pg MCHC 31.9 31.5-35.7 g/dL RDW 13.6 11.7-15.4 % Platelets 339 150-450 x10E3/uL Neutrophils 59 Not Estab. % Lymphs 30 Not Estab. % Monocytes 8 Not Estab. % Eos 2 Not Estab. % Basos 1 Not Estab. % Neutrophils (Absolute) 4.5 1.4-7.0 x10E3/uL Lymphs (Absolute) 2.2 0.7-3.1 x10E3/uL Monocytes(Absolute) 0.6 0.1-0.9 x10E3/uL Eos (Absolute) 0.2 0.0-0.4 x10E3/uL Baso (Absolute) 0.1 0.0-0.2 x10E3/uL Immature Granulocytes 0 Not Estab. % Immature Grans (Abs) 0.0 0.0-0.1 x10E3/uL Ferritin-[id number] Reviewed date:03/19/2024 09:43:12 AM Interpretation: Performing Lab:[facility], [address] [place] [address], Phone - [phone], [facility] Notes/Report: Test(s) 838480-Fgel-Trjddjg Ab by IFA (RDL); 428584- Homogeneous Pattern; 894408-Nnbauhbry Pattern; 993615- Speckled Pattern; 648948-Szvrfwzbgm Pattern; 173589- Spindle Apparatus Pattern; 335698-Nvsihcc Membrane Pattern; 677452- Midbody Pattern; 599689-Gtenfmv Dot Pattern; 643170-SZNX Pattern; 137707-Rddpfxwdm Pattern was developed and its performance characteristics determined by [facility]. It has not been cleared or approved by the Food and Drug Administration. Test(s) 636474-Ugbr, Plasma or Serum was developed and its performance characteristics determined by [facility]. It has not been cleared or approved by the Food and Drug Administration. Ferritin 16 15-150 ng/mL TSH-712643 Reviewed date:03/19/2024 09:39:33 AM Interpretation: Performing Lab:[facility] [address], Phone - [phone], Director - [facility] Notes/Report: Test(s) 736831-Dhtj-Bswydld Ab by IFA (RDL); 869620- Homogeneous Pattern; 872139-Ckofxkyeq Pattern; 487435- Speckled Pattern; 131407-Tdscfoabde Pattern; 488542- Spindle Apparatus Pattern; 614743-Eynzxfz Membrane Pattern; 086873- Midbody Pattern; 462416-Nskxtix Dot Pattern; 170548-ERPX Pattern; 107036-Vklyynspm Pattern was developed and its performance characteristics determined by [facility]. It has not been cleared or approved by the Food and Drug Administration. Test(s) 092410-Mgvt, Plasma or Serum was developed and its performance characteristics determined by [facility]. It has not been cleared or approved by the Food and Drug Administration. TSH 1.190 0.450-4.500 uIU/mL Zinc, Plasma or Serum-829679 Reviewed date:03/19/2024 09:43:05 AM Interpretation: Performing Lab:[facility] [address], Phone - [phone], Director - [facility] Notes/Report: Test(s) 961867-Vhrd-Skzyxmh Ab by IFA (RDL); 500131- Homogeneous Pattern; 767860-Zlaxgsvxx Pattern; 857625- Speckled Pattern; 996664-Fwtiigapgm Pattern; 432000- Spindle Apparatus Pattern; 645539-Nlqqdgf Membrane Pattern; 924007- Midbody Pattern; 039733-Uqjpaey Dot Pattern; 095802-WMCN Pattern; 183244-Efekasluf Pattern was developed and its performance characteristics determined by [facility]. It has not been cleared or approved by the Food and Drug Administration. Test(s) 149819-Ceso, Plasma or Serum was developed and its performance characteristics determined by [facility]. It has not been cleared or approved by the Food and Drug Administration. Zinc, Plasma or Serum 65 44-115 ug/dL Detect ion Limit = 5 Hemoglobin U7k-[id number] Reviewed date:08/03/2024 10:40:18 AM Interpretation: Performing Lab:[facility] [address], Phone - [phone], Director - [facility] Notes/Report: Hemoglobin A1c 6.0 4.8-5.6 % . Prediabetes: 5.7 - 6.4 Diabetes: >6.4 Glycemic control for adults with diabetes: <7.0 Iron and TIBC-520836 Reviewed date:03/19/2024 09:43:24 AM Interpretation: Performing Lab:[facility] [address], Phone - [phone], Director - [facility] Notes/Report: Test(s) 319431-Ozoc-Kwgtnyv Ab by IFA (RDL); 597064- Homogeneous Pattern; 964552-Iripkdxfc Pattern; 999173- Speckled Pattern; 742221-Gzzbcxbhbb Pattern; 630485- Spindle Apparatus Pattern; 433228-Bokgklz Membrane Pattern; 069894- Midbody Pattern; 595281-Ojwebqc Dot Pattern; 056978-WIKP Pattern; 926012-Ebjqmebpe Pattern was developed and its performance characteristics determined by [facility]. It has not been cleared or approved by the Food and Drug Administration. Test(s) 685366-Sxxo, Plasma or Serum was developed and its performance characteristics determined by [facility]. It has not been cleared or approved by the Food and Drug Administration. Iron Bind.Cap.(TIBC) 429 250-450 ug/dL UIBC 381 118-369 ug/dL Iron 48 27-139 ug/dL Iron Saturation 11 15-55 % Urine Culture,Comprehensive- [id number] Reviewed date:07/27/2024 01:23:47 PM Interpretation: Performing Lab:[facility] [address], Phone - [phone], Director - [facility] Notes/Report: Clinical Information:SRC:UR Clinical Information:SRC:UR Urine Culture, Urology Workup Final report Result 1 Mixed urogenital juancho Greater than 100,000 colony forming units per mL Urinalysis, Complete-[id number] Reviewed date:07/27/2024 01:23:41 PM Interpretation: Performing Lab:[facility] [place] [address] [place] [address], Phone - [phone], Director - [place] Notes/Report: Clinical Information:SRC:UR Clinical Information:SRC:UR Specific [place] 1.011 1.005-1.030 pH 6.5 5.0-7.5 Urine-Color Yellow Yellow Appearance Clear Clear WBC Esterase Trace Negative Protein Negative Negative/Trace Glucose Negative Negative Ketones Negative Negative Occult Blood Negative Negative Bilirubin Negative Negative Urobilinogen,Semi-Qn 0.2 0.2-1.0 mg/dL Nitrite, Urine Negative Negative Microscopic Examination See below: Micr oscopic was indicated and was performed. WBC 0-5 0 - 5 /hpf RBC None seen 0 - 2 /hpf Epithelial Cells (non renal) 0-10 0 - 10 /hpf Casts None seen None seen /lpf Bacteria None seen None seen/Few Reason For Referral Reason Evaluation and manag ement Diagnosis 1 Disorder of kidney a nd ureter, unspecified (N28.9) Referral Organization [facility] Referring Provider First Name TREV Referring Provider Last Name [facility] Referring Provider Speciality Internal edicine Referred Provider Specialty Urology General Notes Referral sent to [facility] ([facility], [address] [place] [address] [phone]) - Office will call pt for scheduling.Karina Latraya 12/27/2023 03:50:46 PM > Referral Priority Routine Reason alopecia- please e valuate and treat Diagnosis 1 Alopecia (capitis) t louise (L63.0) Referral Organization [facility] Referring Provider First Name TREV Referring Provider Last Name [facility] Referring Provider Speciality Internal edicine Referred Provider Specialty Dermatology General Notes referral was faxed t [facility]. Please contact patient for scheduling.Colby Rashida 03/10/2024 11:29:25 AM > Referral Priority Routine Medications Medication SIG (Take, Route, Frequency, Duration) Notes Start Date End Date Status Ezetimibe 10 mg TAKE 1 TABLET BY NELIDA ONCE DAILY; Duration: 90 Active Caplyta 21 MG 2 capsules Orally On 03/10/2024 Active Fluticasone Propionate 50 MCG/ACT 1 spray in each nostril Nasally Once a day Not-Taking Albuterol Sulfate HFA 108 (90 Base) MCG/ACT 1 puff Inhalation every 4 hrs; Duration: 90 days Active Doxycycline Monohydrate 100 MG 1 capsule Orally Once a day Not-Taking Austedo 6 MG 1 tablet with food Orally Once a day; Duration: 90 days Active Prevail Adj Underwear Large - Change up to 6 times daily Dx: R32, N31.9; Duration: 90 days 09/20/2024 Active metFORMIN HCl 500 MG 1 tablet with a guero l Orally twice a day; Duration: 90 days Active Home Style Bed Rails - as directed Dx: G 24.9; Duration: 90 days 06/23/2024 Active lamoTRIgine 50 MG 1 tablet on the tong ue and allow to dissolve Orally TWICE A DAY 03/10/2024 Active predniSONE 20 MG 1 tablet Orally Once a day Not-Taking Atorvastatin Calcium 40 mg 1 tablet orally Once a day; Duration: 90 days Active D3 50 MCG (1999 UT) TAKE 1 TABLET BY NELIDA TH ONCE DAILY Once a day; Duration: 90 days Active DULoxetine HCl 60 MG 1 capsule Orally On ce a day; Duration: 90 days Active Fish Oil 1000 MG 3 capsules Orally On ce a day; Duration: 90 days Active Benztropine Mesylate 1 MG 1 tablet Orall y Once a day; Duration: 90 days Active clonazePAM 0.5 MG 1 tablet Orally Once a day; Duration: 28 days PSYCH 02/29/2024 Active Combivent Respimat 20-100 MCG/ACT 1 puff Inhalation every 6 hrs; Duration: 90 days Active OXcarbazepine 300 MG 1 tablet Orally Twi ce a day; Duration: 90 days 11/29/2023 Not-Takin g Venlafaxine HCl 37.5 MG 1 tablet with fo od Orally Once a day; Duration: 90 days Not-Taking Gabapentin 300 MG 1 capsule Orally twi ce a day; Duration: 90 days Active Omeprazole 20 mg TAKE 1 CAPSULE BY MO UTH ONCE DAILY orally Once daily; Duration: 90 days Active Vraylar 1.5 MG 1 capsule Orally Onc e a day; Duration: 90 days Not-Takin g Ingrezza 80 MG 1 capsule Orally Onc e a day Active Levothyroxine Sodium 50 MCG 1 tablet in the morning on an empty stomach Orally Once a day; Duration: 30 days Active Levothyroxine Sodium 75 mcg TAKE ONE TABLET BY MOUTH DAILY; Duration: 90 days Active Clotrimazole 1 % 1 application Externally Twice a day; Duration: 90 days Active Immunizations Vaccine Route Administration Date Status Comme nts COVID Moderna Unknown 03/29/2020 Administered COVID Moderna Unknown 04/25/2020 Administered COVID Moderna Unknown 11/25/2020 Administered COVID Moderna Unknown 05/29/2021 Administered COVID-19 Moderna Unknown 11/19/2021 Administered Flu Unknown 11/21/2022 Administered Flu High-Dose Unknown 11/06/2021 Administered Pneumococcal conjugate PCV 13 Unknown 12/13/2019 Admini stered Pneumococcal polysaccharide PPV23 Unknown 01/17/2014 Ad ministered Pneumococcal polysaccharide PPV23 Unknown 11/19/2015 Ad ministered Pneumococcal polysaccharide PPV23 Unknown 10/13/2018 Ad ministered Pneumococcal polysaccharide PPV23 Unknown 11/08/2020 Ad ministered Shingrix Unknown 11/25/2020 Administered Shingrix Unknown 02/17/2022 Administered Zoster Unknown 01/17/2014 Administered Social History Tobacco Use: Social History Observation Description Date Details (start date - stop date) Current Smoker NA - NA Tobacco Use/Smoking Question Answer Notes Are you a current smoker How often do you smoke cigarettes? every day How many cigarettes a day do you smoke? 21-30 How soon after you wake up do you smoke your fir st cigarette? 6-30 minutes Are you interested in quitting? Not ready to mario t Additional Findings: Tobacco User Chain smoker Alcohol Screen (Audit-C) Question Answer Notes Did you have a drink containing alcohol in the p ast year? No Points 0 Interpretation Negative Problems Problem Type SNOMED Code ICD Code Onset Dates Problem Status W/U Status Risk Notes Problem Hypothyroidism (35963590) Hypothyroidism, unspecified (E03.9) Active confirmed Problem Disorder due to type 2 diabetes mellitus (027716385) Type 2 diabetes mellitus with unspecified complications (E11.8) Active confirmed Problem Obesity due to excess calories (143719932) Other obesity due to excess calories (E66.09) Active confirmed Problem Mixed hyperlipidemia (829417481) Mixed hyperlipidemia (E78.2) Active confirmed Problem Tobacco user (133955036) Nicotine dependence, cigarettes, uncomplicated (F17.210) Active confirmed Problem Bipolar disorder (67120114) Bipolar disorder, unspecified (F31.9) Active confirmed Problem Generalized anxiety disorder (01868460) Generalized anxiety disorder (F41.1) Active confirmed Problem Polyneuropathy (82589204) Polyneuropathy, unspecified (G62.9) Active confirmed Problem Chronic obstructive pulmonary disease (86178488) Chronic obstructive pulmonary disease, unspecified (J44.9) Active confirmed Problem Gastro-esophageal reflux disease without esophagitis (945444898) Gastro-esophageal reflux disease without esophagitis (K21.9) Active confirmed Problem Alopecia totalis (88312745) 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) Active confirmed Problem Osteoarthritis of hip (242341661) Osteoarthritis of hip, unspecified (M16.9) Active confirmed Problem Neurogenic dysfunction of the urinary bladder (277275688) Neuromuscular dysfunction of bladder, unspecified (N31.9) Active confirmed Problem Dysphagia (63628079) Dysphagia, unspecified (R13.10) Active confirmed Problem Abnormal gait (21689220) Unspecified abnormalities of gait and mobility (R26.9) Active confirmed Problem Amnesia (13416256) Complaints of memory disturbance (R41.3) Active confirmed Problem Dyskinesia (2213592) Dyskinesia (G24.9) Active confirmed Vital Signs Heart Rate 86 /min 07/05/2024 Temperature 97.3 degrees Fahrenheit 07/05/2024 Blood pressure diastolic 70 mm Hg 07/05/2024 Oximetry 96 % 07/05/2024 Height 59 in 07/05/2024 Blood pressure systolic 118 mm Hg 07/05/2024 Weight 141.5 lbs 07/05/2024 BMI 28.58 kg/m2 07/05/2024 Encounters Encounter Location Date Provider Diagnosis [address] [place] [address] 12/24/[address] [address] 02/24/[address] [address] 11/29/2023 [facility] Muscle weakness (generalized) M62.81 ; Hyponatremia E87.1 ; Chronic obstructive pulmonary disease, unspecified J44.9 ; Dyskinesia G24.9 ; Bipolar disorder, unspecified F31.9 and Neuromuscular dysfunction of bladder, unspecified N31.[address] [place] [address] 03/10/2024 KARIMI GUL Alopecia (capitis) totalis L63.0 ; Nicotine dependence, cigarettes, uncomplicated F17.210 ; Tobacco abuse counseling Z71.6 and Bipolar disorder, unspecified F31.[address] [address] 07/05/2024 [facility] Nicotine dependence, cigarettes, uncomplicated F17.210 ; Tobacco abuse counseling Z71.6 ; Chronic obstructive pulmonary disease, unspecified J44.9 ; Bipolar disorder, unspecified F31.9 ; Type 2 diabetes mellitus with unspecified complications E11.8 ; Hypothyroidism, unspecified E03.9 and Mixed hyperlipidemia E78.2 [facility] [address] [place] [address] 12/27/2023 [facility] [address] [place] [address] 02/11/2024 [facility] [address] [place] [address] 02/23/2024 [facility] [address] [facility] [address] [place] [address] 02/[facility]24 [facility] B[facility]6 [facility] [address] [place] [address] 03/01/2024 [facility] [address] [place] [address] 03/01/2024 [facility] [address] [place] [address] 03/10/2024 [facility] [address] [facility] [address] [place] [address] 03/15/2024 [facility] [address] [facility] [address] [place] [address] 03/24/2024 [facility] [address] [facility] [address] [place] [address] 05/11/2024 [facility] [address] [facility] [address] [place] [address] 06/19/2024 [facility] [address] [place] [address] 06/23/2024 [facility] [address] [facility] [address] [place] [address] 07/24/2024 Ghadeer Mazloum Dysuria R30.0 [facility] [address] [place] [address] 08/01[facility]2024 [facility] [address] [place] [address] 08/03/2024 [facility] [address] [facility] [address] [place] [address] 08/04/2024 Ghadeer Mazloum Hypothyroidism, unspecified E03.9 [facility] [address] [place] [address] 08/21/2024 [facility] [address] [place] [address] 08/21/2024 [facility] [address] [place] [address] 08/30/2024 [facility] [address] [place] [address] 09/11/2024 [facility] [address] [place] [address] 09/20/2024 Ghadeer Mazloum Dysuria R30.0 [facility] [address] [place] [address] 09/25/2024 KARIMI GUL Dysuria R30.0 [facility] [address] [place] [address] 09/28/2024 Ghadeer Mazloum [facility] [address] [place] [address] 09/29/2024 Ghadeer Mazloum Dysuria R30.0 [facility] [address] [place] [address] 10/17/2024 Ghadeer Mazloum [facility] [address] [place] [address] 10/20/2024 [facility] [address] [place] [address] 10/20/2024 [facility] [address] [place] [address] 10/20/2024 Abdoul Sharpe Assessments Encounter Date Diagnosis (ICD Code) Assessment Notes Treatment Notes Treatment Clinical Notes Section Notes 11/29/2023 Muscle weakness (generalized) (ICD-10 - M62.81) Rosalinda is 73 years old lady with DM type II diet controlled with A1c of 7, hypertension, hyperlipidemia, bipolar disorder Parkinson's disease dyskinesia followed by neurology has been seen after hospital discharge from [facility] and rehab discharge on 11/25/23 Hyponatremia resolved repeat labs were evaluated sodium is 140 patient is alert and oriented. Dehydration resolved labs normalized Parkinson's with tardive dyskinesia followed by neurology she had an appointment with of which she missed as she was in rehab she is aware and would be making another appointment patient will continue her medications without any changes Bipolar disorder she is on Trileptal patient feels very anxious and also feels that her head movements has increased in the hospital Trileptal was discontinued due to concern for hyponatremia however her sodium is completely normal we will restart her home medication at 300 mg twice a day and recheck sodium in 2 weeks Diabetes continue with metformin we will check HbA1c and lab work on her next physical exam COPD not on oxygen currently not in exacerbation continue current Regime Hypertension continue current medications blood pressure is well controlled Plan has been discussed with patient in detail all questions answered Anxiety disorder she is on clonazepam she will continue that without any changes. Reports she has been taking it mostly at night 11/29/2023 Hyponatremia (ICD-10 - E87.1) Rosalinda is 73 years old lady with DM type II diet controlled with A1c of 7, hypertension, hyperlipidemia, bipolar disorder Parkinson's disease dyskinesia followed by neurology has been seen after hospital discharge from [facility] and rehab discharge on 11/25/23 Hyponatremia resolved repeat labs were evaluated sodium is 140 patient is alert and oriented. Dehydration resolved labs normalized Parkinson's with tardive dyskinesia followed by neurology she had an appointment with of which she missed as she was in rehab she is aware and would be making another appointment patient will continue her medications without any changes Bipolar disorder she is on Trileptal patient feels very anxious and also feels that her head movements has increased in the hospital Trileptal was discontinued due to concern for hyponatremia however her sodium is completely normal we will restart her home medication at 300 mg twice a day and recheck sodium in 2 weeks Diabetes continue with metformin we will check HbA1c and lab work on her next physical exam COPD not on oxygen currently not in exacerbation continue current Regime Hypertension continue current medications blood pressure is well controlled Plan has been discussed with patient in detail all questions answered Anxiety disorder she is on clonazepam she will continue that without any changes. Reports she has been taking it mostly at night 02/29/2024 Tinea cruris (ICD-10 - B35.6) 03/10/2024 Nicotine dependence, cigarettes, uncomplicated (ICD-10 - F17.210) Rosalinda is 73 years old lady with DM type II ,hypertension, hyperlipidemia, bipolar disorder dyskinesia, followed by neurology Dr. Osborne who is here presented with concerns of diffuse hair loss. She recently experienced a fall, leading to a three-day hospitalization at [facility] for low sodium levels, followed by a three-week stay at [facility] for rehabilitation. Alopecia. A physical exam confirmed diffuse hair thinning without signs of scalp irritation or lesions. To assess potential causes, blood work was ordered, including a CBC, ferritin, and zinc levels. Referred to dermatology for further evaluation. In the meantime, she was advised to take mczf-kgy-szebhdi zinc (50 mg daily), biotin supplements, and use topical Rogaine. Bipolar disorder. She is stable and she follows up with psychiatrist. Her recent medication from discharge is reviewed and updated. Nicotine dependence. Encouraged abstinence. Different modalities discussed. Lifestyle modifications, including smoking cessation, were encouraged. Follow-up was scheduled to review lab results and assess treatment response. 03/10/2024 Alopecia (capitis) totalis (ICD-10 - L63.0) Rosalinda is 73 years old lady with DM type II ,hypertension, hyperlipidemia, bipolar disorder dyskinesia, followed by neurology Dr. Osborne who is here presented with concerns of diffuse hair loss. She recently experienced a fall, leading to a three-day hospitalization at [facility] for low sodium levels, followed by a three-week stay at [facility] for rehabilitation. Alopecia. A physical exam confirmed diffuse hair thinning without signs of scalp irritation or lesions. To assess potential causes, blood work was ordered, including a CBC, ferritin, and zinc levels. Referred to dermatology for further evaluation. In the meantime, she was advised to take zafa-qwt-hejisse zinc (50 mg daily), biotin supplements, and use topical Rogaine. Bipolar disorder. She is stable and she follows up with psychiatrist. Her recent medication from discharge is reviewed and updated. Nicotine dependence. Encouraged abstinence. Different modalities discussed. Lifestyle modifications, including smoking cessation, were encouraged. Follow-up was scheduled to review lab results and assess treatment response. 08/04/2024 Hypothyroidism, unspecified (ICD-10 - E03.9) 09/20/2024 Dysuria (ICD-10 - R30.0) 09/25/2024 Dysuria (ICD-10 - R30.0) 09/29/2024 Dysuria (ICD-10 - R30.0) 07/24/2024 Dysuria (ICD-10 - R30.0) 07/05/2024 Nicotine dependence, cigarettes, uncomplicated (ICD-10 - F17.210) Rosalinda is 74 years old lady with DM type II ,hypertension, hyperlipidemia, bipolar disorder dyskinesia, followed by neurology Dr. Osborne who is here for follow-up. Plan as follows: Nicotine dependence. Nicotine dependence. Encouraged abstinence. Different modalities discussed. COPD. Stable. Continue on the same regimen. T2DM. No recent bloodwork. Continue on metformin 500mg BID. Diet modification discussed. Foot care discussed. Touch base with opthalm. Check a1c check comp, if NA is low then we will initiate the workup for hyponatremia. Otherwise recommended increasing hydration. Bipolar disorder. She is stable and she follows up with psychiatrist. Her recent medication from discharge is reviewed and updated. Hyopthyroidism. Continue on levothyroxine 75 mg 1 tablet in the morning On an empty stomach 1 hour before breakfast. Check TSH/T4 Hyperlipidemia. Continue atorvastatin 40 mg at bedtime. Check lipid panel. Lifestyle modifications, including smoking cessation, were encouraged. Screening blood work before next appointment, advised patient that if the levels are abnormal then she will be scheduled an appointment to discuss her blood work General concerns have been discussed I have rendered the services for this patient under direct supervision of Dr. Gibson, who did not see the patient but was available upon request 07/05/2024 Tobacco abuse counseling (ICD-10 - Z71.6) Rosalinda is 74 years old lady with DM type II ,hypertension, hyperlipidemia, bipolar disorder dyskinesia, followed by neurology Dr. Osborne who is here for follow-up. Plan as follows: Nicotine dependence. Nicotine dependence. Encouraged abstinence. Different modalities discussed. COPD. Stable. Continue on the same regimen. T2DM. No recent bloodwork. Continue on metformin 500mg BID. Diet modification discussed. Foot care discussed. Touch base with opthalm. Check a1c check comp, if NA is low then we will initiate the workup for hyponatremia. Otherwise recommended increasing hydration. Bipolar disorder. She is stable and she follows up with psychiatrist. Her recent medication from discharge is reviewed and updated. Hyopthyroidism. Continue on levothyroxine 75 mg 1 tablet in the morning On an empty stomach 1 hour before breakfast. Check TSH/T4 Hyperlipidemia. Continue atorvastatin 40 mg at bedtime. Check lipid panel. Lifestyle modifications, including smoking cessation, were encouraged. Screening blood work before next appointment, advised patient that if the levels are abnormal then she will be scheduled an appointment to discuss her blood work General concerns have been discussed I have rendered the services for this patient under direct supervision of Dr. Gibson, who did not see the patient but was available upon request 11/29/2023 Chronic obstructive pulmonary disease, unspecified (ICD-10 - J44.9) Rosalinda is 73 years old lady with DM type II diet controlled with A1c of 7, hypertension, hyperlipidemia, bipolar disorder Parkinson's disease dyskinesia followed by neurology has been seen after hospital discharge from [facility] and rehab discharge on 11/25/23 Hyponatremia resolved repeat labs were evaluated sodium is 140 patient is alert and oriented. Dehydration resolved labs normalized Parkinson's with tardive dyskinesia followed by neurology she had an appointment with of which she missed as she was in rehab she is aware and would be making another appointment patient will continue her medications without any changes Bipolar disorder she is on Trileptal patient feels very anxious and also feels that her head movements has increased in the hospital Trileptal was discontinued due to concern for hyponatremia however her sodium is completely normal we will restart her home medication at 300 mg twice a day and recheck sodium in 2 weeks Diabetes continue with metformin we will check HbA1c and lab work on her next physical exam COPD not on oxygen currently not in exacerbation continue current Regime Hypertension continue current medications blood pressure is well controlled Plan has been discussed with patient in detail all questions answered Anxiety disorder she is on clonazepam she will continue that without any changes. Reports she has been taking it mostly at night 03/10/2024 Tobacco abuse counseling (ICD-10 - Z71.6) Rosalinda is 73 years old lady with DM type II ,hypertension, hyperlipidemia, bipolar disorder dyskinesia, followed by neurology Dr. Osborne who is here presented with concerns of diffuse hair loss. She recently experienced a fall, leading to a three-day hospitalization at [facility] for low sodium levels, followed by a three-week stay at [facility] for rehabilitation. Alopecia. A physical exam confirmed diffuse hair thinning without signs of scalp irritation or lesions. To assess potential causes, blood work was ordered, including a CBC, ferritin, and zinc levels. Referred to dermatology for further evaluation. In the meantime, she was advised to take hzrt-uck-xbzwfst zinc (50 mg daily), biotin supplements, and use topical Rogaine. Bipolar disorder. She is stable and she follows up with psychiatrist. Her recent medication from discharge is reviewed and updated. Nicotine dependence. Encouraged abstinence. Different modalities discussed. Lifestyle modifications, including smoking cessation, were encouraged. Follow-up was scheduled to review lab results and assess treatment response. 03/10/2024 Bipolar disorder, unspecified (ICD-10 - F31.9) Rosalinda is 73 years old lady with DM type II ,hypertension, hyperlipidemia, bipolar disorder dyskinesia, followed by neurology Dr. Osborne who is here presented with concerns of diffuse hair loss. She recently experienced a fall, leading to a three-day hospitalization at [facility] for low sodium levels, followed by a three-week stay at [facility] for rehabilitation. Alopecia. A physical exam confirmed diffuse hair thinning without signs of scalp irritation or lesions. To assess potential causes, blood work was ordered, including a CBC, ferritin, and zinc levels. Referred to dermatology for further evaluation. In the meantime, she was advised to take uhln-mvk-vetljdr zinc (50 mg daily), biotin supplements, and use topical Rogaine. Bipolar disorder. She is stable and she follows up with psychiatrist. Her recent medication from discharge is reviewed and updated. Nicotine dependence. Encouraged abstinence. Different modalities discussed. Lifestyle modifications, including smoking cessation, were encouraged. Follow-up was scheduled to review lab results and assess treatment response. 11/29/2023 Dyskinesia (ICD-10 - G24.9) Rosalinda is 73 years old lady with DM type II diet controlled with A1c of 7, hypertension, hyperlipidemia, bipolar disorder Parkinson's disease dyskinesia followed by neurology has been seen after hospital discharge from [facility] and rehab discharge on 11/25/23 Hyponatremia resolved repeat labs were evaluated sodium is 140 patient is alert and oriented. Dehydration resolved labs normalized Parkinson's with tardive dyskinesia followed by neurology she had an appointment with of which she missed as she was in rehab she is aware and would be making another appointment patient will continue her medications without any changes Bipolar disorder she is on Trileptal patient feels very anxious and also feels that her head movements has increased in the hospital Trileptal was discontinued due to concern for hyponatremia however her sodium is completely normal we will restart her home medication at 300 mg twice a day and recheck sodium in 2 weeks Diabetes continue with metformin we will check HbA1c and lab work on her next physical exam COPD not on oxygen currently not in exacerbation continue current Regime Hypertension continue current medications blood pressure is well controlled Plan has been discussed with patient in detail all questions answered Anxiety disorder she is on clonazepam she will continue that without any changes. Reports she has been taking it mostly at night 07/05/2024 Chronic obstructive pulmonary disease, unspecified (ICD-10 - J44.9) Rosalinda is 74 years old lady with DM type II ,hypertension, hyperlipidemia, bipolar disorder dyskinesia, followed by neurology Dr. Osborne who is here for follow-up. Plan as follows: Nicotine dependence. Nicotine dependence. Encouraged abstinence. Different modalities discussed. COPD. Stable. Continue on the same regimen. T2DM. No recent bloodwork. Continue on metformin 500mg BID. Diet modification discussed. Foot care discussed. Touch base with opthalm. Check a1c check comp, if NA is low then we will initiate the workup for hyponatremia. Otherwise recommended increasing hydration. Bipolar disorder. She is stable and she follows up with psychiatrist. Her recent medication from discharge is reviewed and updated. Hyopthyroidism. Continue on levothyroxine 75 mg 1 tablet in the morning On an empty stomach 1 hour before breakfast. Check TSH/T4 Hyperlipidemia. Continue atorvastatin 40 mg at bedtime. Check lipid panel. Lifestyle modifications, including smoking cessation, were encouraged. Screening blood work before next appointment, advised patient that if the levels are abnormal then she will be scheduled an appointment to discuss her blood work General concerns have been discussed I have rendered the services for this patient under direct supervision of Dr. Gibson, who did not see the patient but was available upon request 07/05/2024 Bipolar disorder, unspecified (ICD-10 - F31.9) Rosalinda is 74 years old lady with DM type II ,hypertension, hyperlipidemia, bipolar disorder dyskinesia, followed by neurology Dr. Osborne who is here for follow-up. Plan as follows: Nicotine dependence. Nicotine dependence. Encouraged abstinence. Different modalities discussed. COPD. Stable. Continue on the same regimen. T2DM. No recent bloodwork. Continue on metformin 500mg BID. Diet modification discussed. Foot care discussed. Touch base with opthalm. Check a1c check comp, if NA is low then we will initiate the workup for hyponatremia. Otherwise recommended increasing hydration. Bipolar disorder. She is stable and she follows up with psychiatrist. Her recent medication from discharge is reviewed and updated. Hyopthyroidism. Continue on levothyroxine 75 mg 1 tablet in the morning On an empty stomach 1 hour before breakfast. Check TSH/T4 Hyperlipidemia. Continue atorvastatin 40 mg at bedtime. Check lipid panel. Lifestyle modifications, including smoking cessation, were encouraged. Screening blood work before next appointment, advised patient that if the levels are abnormal then she will be scheduled an appointment to discuss her blood work General concerns have been discussed I have rendered the services for this patient under direct supervision of Dr. Gibson, who did not see the patient but was available upon request 11/29/2023 Bipolar disorder, unspecified (ICD-10 - F31.9) Rosalinda is 73 years old lady with DM type II diet controlled with A1c of 7, hypertension, hyperlipidemia, bipolar disorder Parkinson's disease dyskinesia followed by neurology has been seen after hospital discharge from [facility] and rehab discharge on 11/25/23 Hyponatremia resolved repeat labs were evaluated sodium is 140 patient is alert and oriented. Dehydration resolved labs normalized Parkinson's with tardive dyskinesia followed by neurology she had an appointment with of which she missed as she was in rehab she is aware and would be making another appointment patient will continue her medications without any changes Bipolar disorder she is on Trileptal patient feels very anxious and also feels that her head movements has increased in the hospital Trileptal was discontinued due to concern for hyponatremia however her sodium is completely normal we will restart her home medication at 300 mg twice a day and recheck sodium in 2 weeks Diabetes continue with metformin we will check HbA1c and lab work on her next physical exam COPD not on oxygen currently not in exacerbation continue current Regime Hypertension continue current medications blood pressure is well controlled Plan has been discussed with patient in detail all questions answered Anxiety disorder she is on clonazepam she will continue that without any changes. Reports she has been taking it mostly at night 07/05/2024 Type 2 diabetes mellitus with unspecified complications (ICD-10 - E11.8) Rosalinda is 74 years old lady with DM type II ,hypertension, hyperlipidemia, bipolar disorder dyskinesia, followed by neurology Dr. Osborne who is here for follow-up. Plan as follows: Nicotine dependence. Nicotine dependence. Encouraged abstinence. Different modalities discussed. COPD. Stable. Continue on the same regimen. T2DM. No recent bloodwork. Continue on metformin 500mg BID. Diet modification discussed. Foot care discussed. Touch base with opthalm. Check a1c check comp, if NA is low then we will initiate the workup for hyponatremia. Otherwise recommended increasing hydration. Bipolar disorder. She is stable and she follows up with psychiatrist. Her recent medication from discharge is reviewed and updated. Hyopthyroidism. Continue on levothyroxine 75 mg 1 tablet in the morning On an empty stomach 1 hour before breakfast. Check TSH/T4 Hyperlipidemia. Continue atorvastatin 40 mg at bedtime. Check lipid panel. Lifestyle modifications, including smoking cessation, were encouraged. Screening blood work before next appointment, advised patient that if the levels are abnormal then she will be scheduled an appointment to discuss her blood work General concerns have been discussed I have rendered the services for this patient under direct supervision of Dr. Gibson, who did not see the patient but was available upon request 11/29/2023 Neuromuscular dysfunction of bladder, unspecified (ICD-10 - N31.9) Rosalinda is 73 years old lady with DM type II diet controlled with A1c of 7, hypertension, hyperlipidemia, bipolar disorder Parkinson's disease dyskinesia followed by neurology has been seen after hospital discharge from [facility] and rehab discharge on 11/25/23 Hyponatremia resolved repeat labs were evaluated sodium is 140 patient is alert and oriented. Dehydration resolved labs normalized Parkinson's with tardive dyskinesia followed by neurology she had an appointment with of which she missed as she was in rehab she is aware and would be making another appointment patient will continue her medications without any changes Bipolar disorder she is on Trileptal patient feels very anxious and also feels that her head movements has increased in the hospital Trileptal was discontinued due to concern for hyponatremia however her sodium is completely normal we will restart her home medication at 300 mg twice a day and recheck sodium in 2 weeks Diabetes continue with metformin we will check HbA1c and lab work on her next physical exam COPD not on oxygen currently not in exacerbation continue current Regime Hypertension continue current medications blood pressure is well controlled Plan has been discussed with patient in detail all questions answered Anxiety disorder she is on clonazepam she will continue that without any changes. Reports she has been taking it mostly at night 07/05/2024 Hypothyroidism, unspecified (ICD-10 - E03.9) Rosalinda is 74 years old lady with DM type II ,hypertension, hyperlipidemia, bipolar disorder dyskinesia, followed by neurology Dr. Osborne who is here for follow-up. Plan as follows: Nicotine dependence. Nicotine dependence. Encouraged abstinence. Different modalities discussed. COPD. Stable. Continue on the same regimen. T2DM. No recent bloodwork. Continue on metformin 500mg BID. Diet modification discussed. Foot care discussed. Touch base with opthalm. Check a1c check comp, if NA is low then we will initiate the workup for hyponatremia. Otherwise recommended increasing hydration. Bipolar disorder. She is stable and she follows up with psychiatrist. Her recent medication from discharge is reviewed and updated. Hyopthyroidism. Continue on levothyroxine 75 mg 1 tablet in the morning On an empty stomach 1 hour before breakfast. Check TSH/T4 Hyperlipidemia. Continue atorvastatin 40 mg at bedtime. Check lipid panel. Lifestyle modifications, including smoking cessation, were encouraged. Screening blood work before next appointment, advised patient that if the levels are abnormal then she will be scheduled an appointment to discuss her blood work General concerns have been discussed I have rendered the services for this patient under direct supervision of Dr. Gibson, who did not see the patient but was available upon request 07/05/2024 Mixed hyperlipidemia (ICD-10 - E78.2) Rosalinda is 74 years old lady with DM type II ,hypertension, hyperlipidemia, bipolar disorder dyskinesia, followed by neurology Dr. Osborne who is here for follow-up. Plan as follows: Nicotine dependence. Nicotine dependence. Encouraged abstinence. Different modalities discussed. COPD. Stable. Continue on the same regimen. T2DM. No recent bloodwork. Continue on metformin 500mg BID. Diet modification discussed. Foot care discussed. Touch base with opthalm. Check a1c check comp, if NA is low then we will initiate the workup for hyponatremia. Otherwise recommended increasing hydration. Bipolar disorder. She is stable and she follows up with psychiatrist. Her recent medication from discharge is reviewed and updated. Hyopthyroidism. Continue on levothyroxine 75 mg 1 tablet in the morning On an empty stomach 1 hour before breakfast. Check TSH/T4 Hyperlipidemia. Continue atorvastatin 40 mg at bedtime. Check lipid panel. Lifestyle modifications, including smoking cessation, were encouraged. Screening blood work before next appointment, advised patient that if the levels are abnormal then she will be scheduled an appointment to discuss her blood work General concerns have been discussed I have rendered the services for this patient under direct supervision of Dr. Gibson, who did not see the patient but was available upon request Plan Of Treatment Pending Test Test Name Order Date X ray : Ankle, left 04/08/2023 DEXA 10/04/2023 X ray : Foot, left 3v 04/08/2023 HEMOGLOBIN A1C WITH EST GLUCOSE 01/23/20 23 LIPID PANEL 10/08/2022 CT Scan: Head/Brain W/O Contrast 024 Mammo: Images Screening Mammogram Bilate ral 10/04/2023 Xray: Hip Kjdo-Btslzszj-Vym 2 Vws 2023 UA W/REFLEX MICROSCOPIC & CULTURE 2021 Cologuard 10/04/2023 Glucose-[id number] 06/04/2023 LDH-812026 11/03/2023 Hemoglobin V5q-176993 10/28/2023 Aldolase-637760 11/03/2023 Sedimentation Uqdd-Dzuwsmvxkc-556729 C-Reactive Protein, Quant-[id number] 024 Hgb A1c with eAG Estimation-361078 06/03 Creatine Kinase (CK), MB-[id number] 11/03/19 24 Lyme Disease Serology w/Reflex-649688 TSH+Free T4-419136 08/04/2024 TSH+Free T4-812912 06/04/2023 Comp. Metabolic Panel (12)-[id number] 2023 Lipid Panel-[id number] 06/04/2023 Lipid Panel-586079 10/28/2023 Basic Metabolic Panel (7)-[id number] Comp. Metabolic Panel (14)-[id number] 2023 Anti-Mi-2 Ab (RDL)-[id number] 11/03/2023 Anti-SRP Ab (RDL)-456526 11/03/2023 Anti-Isadora-1 Ab (RDL)-961069 11/03/2023 RF Isotypes IgG, IgA, IgM EIA-031541 LATISHA 12 Plus Profile (RDL)-352634 024 TSH+Free T4 11/03/2023 Future Test Test Name Order Date MAMMOGRAM, SCREENING 01/04/2023 Next Appt Details Provider Name:Abdoul Carlson enrico, 12/22/2024 11:00:00 AM, [address] [place] [address], [phone], Insurance Providers Payer Name Payer Address Payer Phone Subscriber Number Group Number Insured Name Patient Relationship to Insured Coverage Start Date Coverage End Date [facility] [place] [address] [id number] [phone] [id number] Rosalinda Johnson Self - patient is the insured Medical (General) History Medical History History ICD Code Hyperlipidemia Acid reflux Bipolar disorder and she sees nurse viktoria Adams at [facility] Hypothyroidism COPD and she sees Dr. Irvin Neuropathy and back pain. e sees [facility] and also follow-up with podiatry Anxiety and depression Nicotine dependence ET and see Dr Bach for botox in neck Surgical History Surgery Date(Month/Year) cervical and lumber spine surgries Hospitalization History Reason Date(Month/Year) UTI Septic 2018 COVID 2021 UTI Septic 2021 Pneumonia 2021
--- OUTSIDE RECORDS SUMMARY | 2024-11-14 09:51 | XMS_ITS | Encounter Summary ---
Author Organization [facility] Address [address] [place] [address] Care Team Providers Care Floral Merchandiser Name Role Phone Mariella Reina MD Primary Care Provider [phone] Encounter Details Date Type Department Care Team (Late st Contact Info) Description 02/05/2024 Lab Requisition [facility] - Main Lab [address] [facility] [place] [address] Terese Monteiro MD [address] [place] [address] Chronic obstructive pulmonary disease, unspecified (CMS/HCC V24, CMS/HCC V28) Social History Tobacco Use Types Packs/Day Years [...] on file Sexual Orientation Not on file documented as of this encounter Plan of Treatment Not on file documented as of this encounter Procedures Procedure Name Priority Date/Time Associated Diagnosis Comments COMPLETE BLOOD COUNT Routine 02/05/2024 6:08 AM EST Chronic obstructive pulmonary disease, unspecified (CMS/HCC) BASIC METABOLIC PANEL Routine 02/05/2024 6:08 AM EST Chronic obstructive pulmonary disease, unspecified (CMS/HCC) documented in this encounter Results * Basic metabolic panel (02/05/2024 6:08 AM EST) Sodium 137 133 - 145 mmol/L LAB CHEMISTRY METHOD 02/05/2024 10:43 AM [facility] Potassium 4.6 3.5 - 5.5 mmol/L LAB CHEMISTRY METHOD 02/05/2024 10:43 AM [facility] Chloride 104 96 - 110 mmol/L LAB CHEMISTRY METHOD 02/05/2024 10:43 AM [facility] CO2 28 21 - 32 mmol/L LAB CHEMISTRY METHOD 02/05/2024 10:43 AM [facility] Anion Gap 5 3 - 11 LAB CHEMISTRY METHOD 02/05/2024 10:43 AM [facility] Glucose 95 70 - 100 mg/dL LAB CHEMISTRY METHOD 02/05/2024 10:43 AM [facility] BUN 15 5 - 25 mg/dL LAB CHEMISTRY METHOD 02/05/2024 10:43 AM [facility] Creatinine 0.79 0.50 - 1.10 mg/dL LAB CHEMISTRY METHOD 02/05/2024 10:43 AM [facility] eGFR 79 >=60 mL/min/1. 73m2 LAB CHEMISTRY METHOD 02/05/2024 10:43 AM [facility] Comment:Calculation based on the Chronic Kidney Disease Epidemiology Collaboration (CKD-EPI) equation refit without adjustment for race. BUN/Creatinine Ratio 19.0 LAB CHEMISTRY METHOD 02/05/2024 10:43 AM [facility] Calcium 9.3 8.5 - 10.5 mg/dL LAB CHEMISTRY METHOD 02/05/2024 10:43 AM [facility] Blood Venous blood specimen / Unknown Venipuncture / Unknown 02/05/2024 6:08 AM EST 02/05/2024 9:39 AM EST us Terese Monteiro MD LAB BLOOD ORDERABLES Final Resul t [facility] [address] [place] [address], [place] [phone] * (ABNORMAL) Complete blood count (02/05/2024 6:08 AM EST) WBC 7.4 4.8 - 10.8 K/mcL LAB HEMETOLOGY METHOD 02/05/2024 10:02 AM [facility] RBC 4.60 3.80 - 4.80 M/mcL LAB HEMETOLOGY METHOD 02/05/2024 10:02 AM [facility] Hemoglobin 12.6 11.5 - 16.0 g/dL LAB HEMETOLOGY METHOD 02/05/2024 10:02 AM [facility] Hematocrit 39.6 35.0 - 47.0 % LAB HEMETOLOGY METHOD 02/05/2024 10:02 AM [facility] MCV 86.1 79.0 - 98.0 FL LAB HEMETOLOGY METHOD 02/05/2024 10:02 AM [facility] MCH 27.4 27.0 - 32.0 pcg LAB HEMETOLOGY METHOD 02/05/2024 10:02 AM [facility] MCHC 31.8(L) 32.0 - 37.0 g/dL LAB HEMETOLOGY METHOD 02/05/2024 10:02 AM [facility] RDW 14.5 11.0 - 15.0 % LAB HEMETOLOGY METHOD 02/05/2024 10:02 AM EST [facility] Platelets 384 130 - 400 K/mcL LAB HEMETOLOGY METHOD 02/05/2024 10:02 AM EST [facility] MPV 8.4 7.0 - 11.0 FL LAB HEMETOLOGY METHOD 02/05/2024 10:02 AM EST [facility] NRBC 0.0 <1.0 % LAB HEMETOLOGY METHOD 02/05/2024 10:02 AM EST [facility] NRBC Absolute 0.00 <0.10 K/mcL LAB HEMETOLOGY METHOD 02/05/2024 10:02 AM [facility] Blood Venous blood specimen / Unknown Venipuncture / Unknown 02/05/2024 6:08 AM EST 02/05/2024 9:39 AM EST us Terese Monteiro MD LAB BLOOD ORDERABLES Final Resul t [facility] [address] [place] [address], documented in this encounter Visit Diagnoses Diagnosis Chronic obstructive pulmonary disease, unspecified (CMS/HCC V24, CMS/HCC V28) documented in this encounter Care Teams Floral Merchandiser Relationship Specialty Start Date End Date Mariella Reina MD [address] [place] [address] PCP - General Internal Medicine 10/07/21 documented as of this encounter
== END 2024-11-14 09:36 | disposition home or self-care (01) ==
LOC: HO.HSMS 09:01
PROVIDERS: PCP Hospitalist; Visit Provider Psychiatry & Neurology Neurology
DX: G24.3 Spasmodic torticollis (principal)
CPT/HCPCS: 64616

== ENCOUNTER → 2024-11-14 09:00 | Outpatient (BNVA) | payer OTHER, SELFPAY | PROVIDERS: PCP Hospitalist; Visit Provider Psychiatry & Neurology Neurology | DX: G24.3 Spasmodic torticollis (principal); G24.01 Drug induced subacute dyskinesia | CPT/HCPCS: 64616; 99211; J0585 ==

== ENCOUNTER 2025-01-01 14:09 | Outpatient (AMB) | payer OTHER, SELFPAY ==
--- NOTE | 2025-01-01 14:40 | MHC.OFFVIS ---
Vital Signs 01/01/25 14:41 Height 5 ft Weight 138 lb BMI 26.9 BP 126/78 Blood Pressure Location Rt brachial Position Sitting Pulse 75 Pulse Source Pulse Oximeter Pulse Oximetry (%) 97 Oxygen Delivery Method Room Air Intake Visit Reasons: urgent appt Intake Note: Pain - see workloads Chief Building Inspector Required: No Accompanied by: Self / Same As Patient Allergies aripiprazole (From Abilify) Allergy (Intermediate, Verified 01/01/25 14:40) RASH acetaminophen (From Percocet) Allergy (Unknown, Verified 01/01/25 14:40) FALLS clozapine (From Clozaril) Allergy (Unknown, Verified 01/01/25 14:40) ELEVATED WBC codeine (Codeine) Allergy (Unknown, Verified 01/01/25 14:40) FALL Penicillins Allergy (Unknown, Verified 01/01/25 14:40) RASH Sulfa (Sulfonamide Antibiotics) Allergy (Unknown, Verified 01/01/25 14:40) RASH From Percocet Allergy (Unknown, Uncoded 12/20/23 08:28) FALLS From Vistaril Allergy (Unknown, Uncoded 12/20/23 08:28) HIVES From Flexeril Adverse Reaction (Unknown, Uncoded 12/20/23 08:28) ATAXIA Medication List - Last Reconciled 01/01/25 by Ayleen Bach MD albuterol sulfate 90 mcg/actuation 2 puffs inhalation Q6H PRN atorvastatin 40 mg PO DAILY clonazepam 0.5 mg PO TID PRN clotrimazole 1% appl topical BID deutetrabenazine ER (Austedo XR) 12 mg PO DAILY duloxetine 30 mg PO BID ezetimibe 10 mg PO DAILY tgudtmbfmmc-gnzhncvqu-pifwwiqg 200-62.5-25 mcg (Trelegy Ellipta) inhalation lamotrigine mg PO levothyroxine 50 mcg PO QAM metformin 500 mg PO BID nicotine 1 patch topical DAILY HPI Comments Details: 74y/o female comes for treatment of her cervical dystonia and follow up of her tardive dyskinesia . Her neck movements improved with Botox. Her tremors are worse. she was on ingrezza and wanted she reports increase in her tongue and mouth movements 3-4 weeks ago since she started AUstedo to try austedo h/o exposure to neuroleptics she could not tolerate gabapentin - made her off balance and oozy.she decreased it to 300mg tid ? PFSH Medical History Tardive dyskinesia Tremors of nervous system Spasmodic torticollis Hyperlipidemia GERD (gastroesophageal reflux disease) Frequent headaches Depression COPD (chronic obstructive pulmonary disease) Surgical History Hx of cervical spine surgery History of back surgery Hx of cholecystectomy Family History Father Cancer Mother Cancer Social History Household Members: None Alcohol intake: never Patient Tobacco Use Status: Current everyday Tobacco user Tobacco use type: Cigarette Cigarette Packs Per Day: 1 Physical Exam Vital Signs: Last Vital Signs Pulse 75 01/01/25 14:41 BP 126/78 01/01/25 14:41 Pulse Ox 97 01/01/25 14:41 Oxygen Delivery Method Room Air 01/01/25 14:41 BMI result Body Mass Index 26.9 Const General: cooperative, healthy appearing, comfortable and no acute distress Nutritional Appearance: average body habitus Orientation/consciousness: patient oriented x3 Neck Other: mild right laterocollis Neuro Other: high amplitude postural tremors amish UE perioral movements Tongue movements. General: patient oriented x3 and tone normal Cognition (Neuro): normal cognition Gait exam (Neuro): Normal gait present Assessment & Plan Assessment & Plan (1) Tardive dyskinesia: Code(s): G24.01 - Drug induced subacute dyskinesia Category: Medical (2) Spasmodic torticollis: Code(s): G24.3 - Spasmodic torticollis Category: Medical (3) Tremors of nervous system: Code(s): R25.1 - Tremor, unspecified Category: Medical Plan Increase austedo XR 18mg qd CT brain to r/o structural causes Orders: Orders CT head/brain wo IV con Today R25.1 - Tremor, unspecified, R51.9 - Headache, unspecified Medications: Changed From deutetrabenazine ER (Austedo XR) 12 mg PO DAILY 30 tabs 6RF To deutetrabenazine ER 18 mg PO DAILY 30 tabs 6RF Coding Level of Care Code Complex visit Add On G2211 Diagnoses Tardive dyskinesia G24.01 Spasmodic torticollis G24.3 Tremors of nervous system R25.1
[2025-01-01 14:41] VITALS: BP 126/78; PULSE 75; O2SAT 97; BMI 26.9
--- OUTSIDE RECORDS SUMMARY | 2025-01-01 19:07 | XMS_ITS | Encounter Summary ---
Author Organization [facility] Address [address] [place] [address] Care Team Providers Care Gas Inspector Name Role Phone Mariella Reina MD Primary Care Provider [phone] Encounter Details Date Type Department Care Team (Late st Contact Info) Description 02/05/2024 Lab Requisition [facility] - Main Lab [address] [facility] [place] [address] Terese Monteiro MD [address] [place] [address] Chronic obstructive pulmonary disease, unspecified (CMS/HCC V24, CMS/HCC V28) Social History Tobacco Use Types Packs/Day Years Used Date Smoking Tobacco: Every Day Cigarettes 1 63.1 Started: [birth year]09/1960 Smokeless Tobacco: Never Alcohol Use [...] as of this encounter Plan of Treatment Upcoming Encounters Date Type Department Care Team (Late st Contact Info) Description 02/19/2025 2:15 PM EST Ancillary Procedure Pulmonology - [place] [address] [facility] [address] [place] [phone] 02/19/2025 3:00 PM EST Office Visit Pulmonology - [place] [address] [facility] [address] [place] [phone] Cele Irvin MD [address] [place] [phone] documented as of this encounter Procedures Procedure [...] mmol/L LAB CHEMISTRY METHOD 02/05/2024 10:43 AM [facility] Potassium 4.6 3.5 - 5.5 mmol/L LAB CHEMISTRY METHOD 02/05/2024 10:43 AM [facility] Chloride 104 96 - 110 mmol/L LAB CHEMISTRY METHOD 02/05/2024 10:43 AM [facility] CO2 28 21 - 32 mmol/L LAB CHEMISTRY METHOD 02/05/2024 10:43 AM [facility] Anion Gap 5 3 - 11 LAB CHEMISTRY METHOD 02/05/2024 10:43 AM [facility] Glucose 95 70 - 100 mg/dL LAB CHEMISTRY METHOD 02/05/2024 10:43 AM [facility] BUN 15 5 - 25 mg/dL LAB CHEMISTRY METHOD 02/05/2024 10:43 AM [facility] Creatinine 0.79 0.50 - 1.10 mg/dL LAB CHEMISTRY METHOD 02/05/2024 10:43 AM EST [facility] eGFR 79 >=60 mL/min/1. 73m2 LAB CHEMISTRY METHOD 02/05/2024 10:43 AM [facility] Comment:Calculation based on the Chronic Kidney Disease Epidemiology Collaboration (CKD-EPI) equation refit without adjustment for race. BUN/Creatinine Ratio 19.0 LAB CHEMISTRY METHOD 02/05/2024 10:43 AM EST [facility] Calcium 9.3 8.5 - 10.5 mg/dL LAB CHEMISTRY METHOD 02/05/2024 10:43 AM [facility] Blood Venous blood specimen / Unknown Venipuncture / Unknown 02/05/2024 6:08 AM EST 02/05/2024 9:39 AM EST us Terese Monteiro MD LAB BLOOD ORDERABLES Final Resul t [facility] [address] [place] [address], * (ABNORMAL) Complete blood count (02/05/2024 6:08 AM EST) WBC 7.4 4.8 - 10.8 K/mcL LAB HEMETOLOGY METHOD 02/05/2024 10:02 AM [facility] RBC 4.60 3.80 - 4.80 M/mcL LAB HEMETOLOGY METHOD 02/05/2024 10:02 AM [facility] Hemoglobin 12.6 11.5 - 16.0 g/dL LAB HEMETOLOGY METHOD 02/05/2024 10:02 AM [facility] Hematocrit 39.6 35.0 - 47.0 % LAB HEMETOLOGY METHOD 02/05/2024 10:02 AM [facility] MCV 86.1 79.0 - 98.0 FL LAB HEMETOLOGY METHOD 02/05/2024 10:02 AM EST [facility] MCH 27.4 27.0 - 32.0 pcg LAB HEMETOLOGY METHOD 02/05/2024 10:02 AM [facility] MCHC 31.8(L) 32.0 - 37.0 g/dL LAB HEMETOLOGY METHOD 02/05/2024 10:02 AM EST [facility] RDW 14.5 11.0 - 15.0 % LAB HEMETOLOGY METHOD 02/05/2024 10:02 AM [facility] Platelets 384 130 - 400 K/mcL LAB HEMETOLOGY METHOD 02/05/2024 10:02 AM [facility] MPV 8.4 7.0 - 11.0 FL LAB HEMETOLOGY METHOD 02/05/2024 10:02 AM EST [facility] NRBC 0.0 <1.0 % LAB HEMETOLOGY METHOD 02/05/2024 10:02 AM [facility] NRBC Absolute 0.00 <0.10 K/mcL LAB HEMETOLOGY METHOD 02/05/2024 10:02 AM [facility] Blood Venous blood specimen / Unknown Venipuncture / Unknown 02/05/2024 6:08 AM EST 02/05/2024 9:39 AM EST us Terese Monteiro MD LAB BLOOD ORDERABLES Final Resul t [facility] [address] [place] [address], documented in this encounter Visit Diagnoses Diagnosis Chronic obstructive pulmonary disease, unspecified (CMS/HCC V24, CMS/HCC V28) documented in this encounter Care Teams Gas Inspector Relationship Specialty Start Date End Date Mariella Reina MD [address] [place] [address] PCP - General Internal Medicine 10/07/21 documented as of this encounter
--- OUTSIDE RECORDS SUMMARY | 2025-01-01 19:07 | XMS_ITS | Data Portability ---
Author Organization [facility], Main Office Address [address], [address] [place] [address] Care Team Providers Care Weed Cooking Operator Name Role Phone [facility] OTHER [phone] Assessment No assessment recorded. Plan of Treatment Reminders Order Date Submit Date Provider Last Modified By Organization Details Last Modified Time Details Appointments None record ed. Lab None record ed. Referral None record ed. Procedures None record ed. Surgeries None record ed. Imaging None record ed. Medication Orders None record ed. Patient TargetsNo targets recorded. Patient InstructionsNo instructions recorded. Reason for Referral None Reported. Problems Name Problem SNOMED Code Status Onset Date Resolution Date Notes Provider Name and Address Organization Details Recorded Time Unsteady when walking 16237417 Active 2024 Devonte Hazel MD [address], [address], [place], [address], [facility] [employer] [facility] 13:40:57 Adult failure to thrive syndrome 465971357 Active 2024 Devonte Hazel MD [address], [address], [place], [address], [facility] [employer] [facility] 13:41:14 Bipolar disorder 66088228 Active 2024 Devonte Hazel MD [address], [address], [place], [address], [facility] [employer] 13:41:21 Tardive dyskinesia 014567263 Active 2024 Devonte Hazel MD [address], [address], [place], [address], [facility] [employer] 13:41:27 Essential hypertension 51805400 Active 2024 Devonte Hazel MD [address], [address], [place], [address], [facility] 13:41:31 Diabetes mellitus 59261720 Active 2024 Devonte Hazel MD [address], [address], [place], [address], [facility] 5 13:41:34 Chronic obstructive pulmonary disease 13675934 Active 2024 Devonte Hazel MD [address], [address], [place], [address], [facility] 5 13:41:38 Generalized anxiety disorder 48460204 Active 2024 Devonte Hazel MD [address], [address], [place], [address], [facility] 5 13:41:45 Morfin's esophagus 189590261 Active 2024 Devonte Hazel MD [address], [address], [place], [address], [facility] 5 13:41:50 Hypothyroidism 68576444 Active 2024 Devonte Hazel MD [address], [address], [place], [address], [facility] 5 13:41:55 Problem Notes None recorded. Medical Equipment None Reported. Allergies Allergen ID Allergen Name Allergen Category Reaction Reaction Severity Criticality Documentation Date Start Date Code Code System Note Provider Name and Address Organization Details Recorded Time 81615 codeine medicatio n Not available Not available Not available 02/10/2024 2670 RxNorm Devonte Hazel MD [address], [address], [place], [address], [facility] 5 13:27:48 84453 ketorolac medicatio n Not available Not available Not available 02/10/2024 18906 RxNorm Devonte Hazel MD [address], [address], [place], [address], [facility] 5 13:27:55 94674 morphine medicatio n Not available Not available Not available 02/10/2024 7052 RxNorm Devonte Hazel MD [address], [address], [place], [address], [facility] [employer] 5 13:28:07 11237 oxycodone medicatio n Not available Not available Not available 02/10/2024 7804 RxShaggy Hazel MD [address], [address], [place], [address], [facility] [employer] 5 13:28:12 21959 Product containin g penicilli n (product) medicatio n Not available Not available Not available 02/10/2024 03936 8001 SHAWN Hazel MD [address], [address], [place], [address], [facility] [employer] 5 13:28:28 78550 Substance with sulfonami de structure and antibacte rial mechanism of action (substanc e) medicatio n Not available Not available Not available 02/10/2024 85639 8003 SHAWN Hazel MD [address], [address], [place], [address], [facility] [employer] 5 13:28:36 46711 tramadol medicatio n Not available Not available Not available 02/10/2024 [id number] Lea Hazel MD [address] [place] [address], [address], [place], [address], [facility] [employer] 5 13:28:46 Medications Name Sig Start Date Stop Date Status Note LastModified by Organization Details LastModified Time atorvastatin 40 mg tablet TAKE 1 TABLET BY MOUTH ONCE DAILY active Not Available Not Available No t Available metformin 500 mg tablet TAKE 1 TABLET BY MOUTH two (2) times a day WITH A MEAL active Not Available Not Available No t Available prednisone 20 mg tablet TAKE 3 TABLETS BY MOUTH ONCE DAILY FOR 2 DAYS; 2 TABLETS ONCE DAILY FOR 2 DAYS; THEN 1 TABLET ONCE DAILY FOR 2 DAYS active Not Available Not Available No t Available clonazepam 0.5 mg tablet TAKE 1/2 TABLET BY MOUTH 3 (THREE) TIMES A DAY NEEDED FOR ANXIETY active Not Available Not Available Not Available oxcarbazepin e 300 mg tablet TAKE 1 TABLET BY MOUTH two (2) times a day active Not Available Not Available No t Available ciprofloxaci n 500 mg tablet TAKE 1 TABLET BY MOUTH two (2) times a day FOR 7 DAYS active Not Available Not Available No t Available levothyroxin e 75 mcg tablet TAKE ONE TABLET BY MOUTH DAILY active Not Available Not Available Not Available phenazopyrid ine 95 mg tablet TAKE 1 TABLET BY MOUTH 3 (THREE) TIMES A DAY FOR PAIN FOR 2 DAYS active Not Available Not Available N ot Available doxycycline monohydrate 100 mg capsule TAKE 1 CAPSULE BY MOUTH two (2) times a day FOR 7 DAYS. can cause extreme sensitivity TO THE sun active Not Available Not Available N ot Available benztropine 1 mg tablet TAKE 1 TABLET BY MOUTH EVERY MORNING AND 2 TABLETS EVERY NIGHT AT BEDTIME active Not Available Not Available N ot Available nicotine 21 mg/24 hr daily transdermal patch APPLY 1 PATCH TOPICALLY ONCE DAILY active Not Available Not Available N ot Available omeprazole 20 mg capsule,vianey yed release TAKE 1 CAPSULE BY MOUTH ONCE DAILY active Not Available Not Available No t Available fluticasone propionate 50 mcg/actuatio n nasal spray,suspen david SPRAY TWICE INTO EACH NOSTRIL ONCE DAILY active Not Available Not Available N ot Available clotrimazole 1 % topical cream APPLY TO THE AFFECTED AREA TOPICALLY two (2) times a day active Not Available Not Available Not Available ezetimibe 10 mg tablet TAKE 1 TABLET BY MOUTH ONCE DAILY active Not Available Not Available No t Available duloxetine 30 mg capsule,vianey yed release TAKE 1 CAPSULE BY MOUTH ONCE DAILY active Not Available Not Available No t Available duloxetine 60 mg capsule,vianye yed release TAKE 1 CAPSULE BY MOUTH ONCE DAILY AT BEDTIME active Not Available Not Available No t Available omega-3 fatty acids-fish oil 300 mg-1,000 mg capsule TAKE 3 CAPSULES BY MOUTH ONCE DAILY active Not Available Not Available No t Available cholecalcife rol (vitamin D3) 50 mcg (2,000 unit) tablet TAKE 1 TABLET BY MOUTH ONCE DAILY active Not Available Not Available No t Available Vraylar 1.5 mg capsule TAKE 1 CAPSULE BY MOUTH ONCE DAILY active Not Available Not Available No t Available Ingrezza 40 mg capsule TAKE 1 CAPSULE BY MOUTH ONCE DAILY active Not Available Not Available No t Available Trelegy Ellipta 100 mcg-62.5 mcg-25 mcg powder for inhalation INHALE 1 PUFF BY MOUTH INTO THE LUNGS ONCE DAILY active Not Available Not Available N ot Available Ingrezza 80 mg capsule TAKE 1 CAPSULE BY MOUTH ONCE DAILY active Not Available Not Available No t Available [facility] COVID-19 Antigen Rapid Home Test kit USE DIRECTED NEEDED active Not Available Not Available No t Available [employer] XR Titration Kit(Week 1-4) 6 mg-12 mg-24 mg tablet,ER dosepack TAKE DIRECTED PER PACKAGE labeling active Not Available Not Available No t Available Vitals Date Recorded Systolic And Diastolic Provider Name and Address Organization Details Last Updated DateTime 02/10/2024 138/71 mm[Hg] Devonte Hazel MD [address], [address], [place], [address], [facility] 02/10/2024 13:30:15 Date Recorded Body temperature Respiratory rate Heart rate Oxygen saturation Systolic And Diastolic Provider Name and Address Organization Details Last Updated DateTime 5 98 [degF] 17.97 /min 78 /min 95 % 129/71 mm[Hg] TARYN KENDRICK [address], [address], [place], [address], [facility] 5 17:30:55 Social History Question Answer Notes LastModified by Organizat ion Details LastModified Time Tobacco Smoking Status Current Every Day Smoker Devonte Hazel MD [address], [address], [place], [address], [facility] 02/10/2024 13:29:22 Do You Have An Advance Directive? Yes Information not available 02/10/2024 What Is Your Code Status? Full Code Information not available 02/10/2024 How Much Tobacco Do You Smoke? 1 PPD Information not available 02/10/2024 Sex: Female Functional Status Question Answer Note LastModified by Organization D etails LastModified Time What is your level of alcohol consumption? None [facility] Information not available 02/10/2024 Mental Status None recorded. Family History Nothing Reported Notes:N/C Medical History No medical history recorded. Gynecological HistoryNo gynecological history recorded. Obstetrics History GPAL:G 0 P 0 0 0 0 Past Encounters Encounter ID Performer Location Encounter Start Date Encounter Closed Date Diagnosis/Indication Diagnosis SNOMED-CT Code Diagnosis ICD10 Code Diagnosis IMO Codes Diagnosis Note [id number] [place] [address] 02/10/2024 13:27:28 02/15/2024 10:09:59 Unsteady when walking 10151308 R26.89 see HPIstill requiring supervisio n remains fall riskdiscus sed with therapy and patientcur rently unsafe to return home if patient leaves it would be AMAencoura ging patient to remain at facility and continue with therapy Strong concern patient will sign out AMA Adult fail ure to thrive syndrome 110875411 R62.7 see above Bipolar disorder 2910190 4 F31.89 cymbalta 60 mg qdcaplyta 21 mg qdlamictal 50 mg bidmonitor moodpsych to eval prn Tardive dyskinesia 99337 9007 G24.01 ingrezza 80 mg qdcogentin 1 mg qam 2 mg qpmcontinu edmonitor for sx Essential hypertension 34554501 I10 norvasc 10 mg qdmonitor bp and need to titrate Diabetes mellitus 791091 09 E11.42 gabapentin 600 mg tidappears diet controlled added to PMH Chronic ob structive pulmonary disease 74674048 J41.1 encourage quitting tobacco smoking 1 ppdTrelegy Ellipta Inhalation 100-62.5-2 5 MCGmonitor respirator y statuspulm onary eval prn Generalize d anxiety disorder 27030645 F41.1 see above meds Morfin's esophagus 3029 84638 K22.70 omeprazole 20 mg qammonitor sxupdate GI with concerns Hypothyroidism 05272774 E03.8 synthroid 75 mcg qdtsh prn [id number] [place] [address] 02/18/2024 17:17:39 02/22/2024 16:14:13 Bipolar disorder 65790923 F31.89 cymbalta 60 mg qdcaplyta 21 mg qdlamictal 50 mg bid Tardive dyskinesia 51588 9007 G24.01 ingrezza 80 mg qdcogentin 1 mg qam 2 mg qpm Essential hypertension 65671699 I10 norvasc 10 mg qd Diabetes mellitus 525726 09 E11.42 gabapentin 600 mg tidappears diet controlled added to PMH Chronic ob structive pulmonary disease 10328397 J41.1 encourage quitting tobacco smoking 1 ppdTrelegy Ellipta Inhalation 100-62.5-2 5 MCGfollow up outpatient with pulmonary prn Generalize d anxiety disorder 45032205 F41.1 cymbalta 60 mg qdcaplyta 21 mg qdlamictal 50 mg bid Morfin's esophagus 3029 21190 K22.70 omeprazole 20 mg qam Hypothyroidism 73390739 E03.8 synthroid 75 mcg qd Health Concerns Section Related Observation LastModified by Organization Detai ls LastModified Time None Recorded Concern Status LastModified by Organization Details LastModified Time None Recorded Advance Directives Directive Y: Payers Insurance Date Sequence Insurance Name Policy Number Policy Monsalve Covered Member ID Monsalve Member ID Guarantor Name 02/21/2024 [facility] - DOS ON OR AFTER 2022 - MEDICARE ADVANTAGE [place] (MEDICARE REPLACEMENT/AD VANTAGE - PPO) Rosalinda Johnson [id number] Rosalinda Johnson Notes Date Note Type Note Provider Name and Address Organization Details Recorded Time 02/09/19 25 text/htm l Patient is a 74 yo female seen for transition of care note and acute rounding with patient stating she is leaving today . Limited information available in chart with most recent note stating patient was initially admit from hospital presenting after fall found to by hyponatremic with question SIADH PMH significant forhtndmbipolar dxtardive dyskinesiacopdanxietygerd with barretts esophagustobacco use dxhypothyroidgait instability Patient was eval by psych and oxcarbamazepine as question contributing to low [place] to start lamotrigine 50 mg qd x 2 weeks then increase to 50 mg bid however it appears patient already on higher dose For her htn was started norvasc At facility discussed with nursing, therapy and social work. Patient states I am going home today . Per therapy patient is still supervision level and requires assist. She will be returning home alone. Not safe to return home at this time. Patient is able to make own medical decisions. If she leaves facility it will be AMA, discussed with patient in depth Devonte Hazel MD [address], [address], [place], [address], [facility] 02/10/2024 13:55:34 02/17/19 25 text/htm l This is a 74 yr old female admitted to [place] from hospital after presenting due to a fall found to by hyponatremic with question SIADH PMH significant forhtndmbipolar dxtardive dyskinesiacopdanxietygerd with barretts esophagustobacco use dxhypothyroidgait instability Patient seen for discharge.Medically she has been stable, she is compliant with medication. Patient has worked with therapy and has made good functional gains with improvements in strength, balance and functional activity tolerance. Patient can be safely discharge to home. Therapy is recommending patient to continue home OT/PT for transition back to home environment. Patient has all necessary equipment in order to safely return home.Patient can be discharge to home with PT/OT and nursing services. TARYN KENDRICK [address], [address], [place], [address], [facility] 02/18/2024 17:34:19 OBGyn Episode No OBEpisode recorded.
--- OUTSIDE RECORDS SUMMARY | 2025-01-01 19:07 | XMS_ITS | Encounter Summary ---
Author Organization [facility] Address [address] [place] [address] Care Team Providers Care Head Turning Machine Operator Name Role Phone Mariella Reina MD Primary Care Provider [phone] Encounter Details Date Type Department Care Team (Late st Contact Info) Description 12/27/2024 Telephone Lung Screening Program - [address] [place] [address] Daisy Keen MA Social History Tobacco Use Types Packs/Day Years [...] on file documented as of this encounter Progress Notes * Daisy Keen MA - 12/27/2024 10:27 AM EST Reached out to patient who refused our program, Patient stated that she has a facility she goes to and is 10 minutes away from her home . Patient declined referral returned. documented in this encounter Plan of Treatment Upcoming Encounters Date Type Department Care Team (Late st Contact Info) Description 02/19/2025 2:15 PM EST Ancillary Procedure Pulmonology - [place] [address] [facility] [address] [place] [address] 02/19/2025 3:00 PM EST Office Visit Pulmonology - [place] [address] [facility] [address] [place] [address] Cele Irvin MD [address] [place] [phone] documented as of this encounter Visit Diagnoses Not on filedocumented in this encounter Care Teams Head Turning Machine Operator Relationship Specialty Start Date End Date Mariella Reina MD [address] [place] [id number] PCP - General Internal Medicine 10/07/21 documented as of this encounter
--- OUTSIDE RECORDS SUMMARY | 2025-01-01 19:07 | XMS_ITS | Clinical Summary ---
Author Organization [facility] Address [address] [place] [phone] Phone Care Team Providers Care Satellite Manager Name Role Phone Mariella Reina MD Primary Care Provider [phone] Allergies Active Allergy Reactions Criticality Noted Date [...] lungs EVERY 4 HOURS NEEDED FOR WHEEZING 01/02/20 21 Active benztropine (COGENTIN) 1 mg tablet Take 1 mg by mouth. 1 mg in AM and 2 mg in PM Active gabapentin (NEURONTIN) 600 mg tablet Take 1 Tablet by mouth 3 times daily. Active levothyroxine (SYNTHROID, LEVOTHROID) 75 mcg tablet TAKE ONE TABLET BY MOUTH DAILY 08/15/19 22 Active lumateperone (Caplyta) 21 mg capsule Take by mouth. Acti ve lumateperone (Caplyta) 42 mg capsule Take by mouth. Acti ve omeprazole (PriLOSEC) [address] capsule TAKE ONE CAPSULE BY MOUTH DAILY 08/20/19 Active cholecalcifero l (VITAMIN D-3) 50 mcg (2,000 unit) tablet TAKE ONE TABLET BY MOUTH DAILY 08/27/19 Active cholecalcifero l (VITAMIN D-3) 50 mcg (2,000 unit) tablet Take 1 Tablet by mouth daily. Active atorvastatin (LIPITOR) 40 mg tablet Take 1 tablet (40 mg total) by mouth 1 (one) time each day. 01/04/20 24 Active DULoxetine (CYMBALTA) [address] capsule Take 1 capsule (60 mg total) by mouth at bedtime. at bedtime 01/20/20 24 Active DULoxetine (CYMBALTA) [address] capsule Take 1 capsule (30 mg total) by mouth 1 (one) time each day. 01/20/20 24 Active Ingrezza 80 mg capsule Take 80 mg by mouth 1 (one) time each day. 01/27/20 24 Active ezetimibe (ZETIA) 10 mg tablet Take 1 tablet (10 mg total) by mouth 1 (one) time each day. 01/11/20 24 Active clonazePAM (KlonoPIN) 0.5 mg tablet Take 1 tablet (0.5 mg total) by mouth 3 (three) times a day if needed for anxiety for up to 9 doses. Max Daily Amount: 1.5 mg 9 each 02/03/20 24 Active nicotine (NICODERM CQ) 21 mg/[address] 1 patch on the skin 1 (one) time each day. 02/04/20 24 Active lamoTRIgine (LaMICtal) 25 mg tablet Take 2 tablets (50 mg total) by mouth 1 (one) time each day. Take 50mg daily for 2 weeks Then take 50mg BID 02/04/20 24 Active amLODIPine (NORVASC) 10 mg tablet Take 1 tablet (10 mg total) by mouth 1 (one) time each day. 02/03/20 24 Active Austedo XR 12 mg tablet extended release 24 hr Take 1 tablet by mouth 1 (one) time each day. 12/14/19 25 Active fluticasone-um eclidinium-abhijeet anterol (Trelegy Ellipta) 200-62.5-25 mcg inhaler Inhale 1 puff (200 mcg total) by mouth 1 (one) time each day. Rinse mouth with water after use to reduce aftertaste and incidence of candidiasis. Do not swallow. 1 each 12 12/26/19 25 026 Active nicotine (Nicoderm CQ) 21 mg/[address] 1 patch on the skin 1 (one) time each day at the same time. 30 each 1 12/26/19 25 025 Active fluticasone-um eclidinium-abhijeet anterol (Trelegy Ellipta) 100-62.5-25 mcg inhaler Inhale 1 Puff into the lungs daily. 3 inhalers and 3 refills 09/21/19 24 025 Discontinued Active Problems Problem Noted Date Diagnosed Date [...] Urinary tract infection 09/09/2022 Overview (12/28/2023): per [id number] PCP note Pancreatic cyst 05/20/2021 Tardive dyskinesia 05/20/2021 Shoulder pain, right 01/17/2021 Earache 01/17/2020 Varicose veins with pain 03/18/2018 Gastroesophageal reflux disease 12/09/2017 Bipolar 1 disorder ([facility] V24, [facility] V28) Chronic obstructive pulmonar y disease ([facility], [facility] V28) 10/28/2017 Degenerative disc disease, lumbar 10/28/2017 Overview (12/28/2023): f/u [facility] dr. Garvin- MRI lumbar 04/28/18 Hyperlipidemia 10/28/2017 Hypertension 10/28/2017 Hypothyroidism 10/28/2017 Iron deficiency 10/28/2017 Low back pain 10/28/2017 Type 2 diabetes mellitus wit h neurological manifestations ([facility] V[facility], [facility] V28) 10/28/2017 Morfin's esophagus 08/12/2017 Peripheral neuropathy 08/12/2017 Allergic rhinitis 06/28/2017 Anxiety and depression 06/28/2017 Pulmonary nodules 02/02/2017 Tubular adenoma of colon 03/15/2015 Encounters Date Type Department Care Team Description 12/27/2024 Telephone Lung Screening Program - [place] [facility] [address] [place] [phone] Daisy Keen [place] 12/25/2024 9:45 AM EST Office Visit Pulmonology - [place] [facility] [address] [place] [phone] Cele Irvin MD Chronic obstructive pulmonary disease, unspecified COPD type ([facility] V24, [facility] V28) (Primary Dx); Vaping nicotine dependence, non-tobacco product; ARDS survivor; Smoker from Last 3 Months Immunizations Immunization Administration Dates Next Due Influenza [...] Site/Laterality Comments OTHER SURGICAL HISTORY 10/2016 PROCEDURE: [place] ANESTHESIA LUMBAR REGION NOS; COMMENT: Left L4-L5 minimally invasive decompression 10-27-16 Dr. Simpson NECK SURGERY 2018 PROCEDURE: HISTORICAL NECK SURGERY; COMMENT: Dr. Simpson OTHER SURGICAL HISTORY N/A PROCEDURE: [place] LAMNOTMY INCL W/DCMPRSN NRV ROOT 1 INTRSPC CERVC; COMMENT: Right C6-7 foraminotomy diskectomy 06-30-18 Dr. Simpson CHOLECYSTECTOMY 1980 N/A PROCEDURE: HISTORICAL CHOLECYSTECTOMY OTHER SURGICAL HISTORY 05/28/2022 PROCEDURE: OUTSIDE ENDOSCOPY; COMMENT: Dr. Grimes @ [place] Medical History Medical History Date Comments History of pulmonary embolism 12/04/2017 DX :History of pulmonary embolism; COMMENT: pt does not recall this history or use of blood thinners in past Allergic rhinitis 06/28/2017 DX:Allergic rh initis Morfin's esophagus 08/12/2017 DX:Morfin's esophagus Bipolar 1 disorder (CMS/HCC V24, CMS/HCC V28) 10/28/2017 DX:Bipolar 1 disorder (HCC) Degenerative disc disease, lumbar 10/28/2017 DX:Degenerative disc disease, lumbar; COMMENT: f/u [facility] dr. Garvin- MRI lumbar 04/28/18 Chronic obstructive pulmonar y disease (CMS/HCC V24, CMS/HCC V28) 10/28/2017 DX:Chronic obstructive pulm onary disease (HCC) Hyperlipidemia 10/28/2017 DX:Hyperlipidemi a Hypertension 10/28/2017 DX:Hypertension; COMMENT: BP meds d/c'd for normal BP 2020 Hypothyroidism 10/28/2017 DX:Hypothyroidis m Iron deficiency 10/28/2017 DX:Iron deficien cy Peripheral neuropathy 08/12/2017 DX:Periphe ral neuropathy Pulmonary nodules 02/02/2017 DX:Pulmonary n odules Tubular adenoma of colon 03/15/2015 DX:Tubu lar adenoma of colon Type 2 diabetes mellitus wit h neurological manifestations (CMS/HCC V24, CMS/HCC V28) 10/28/2017 DX:Type 2 diabetes mellitus with neurological manifestations (HCC); COMMENT: controlled off meds Gastroesophageal reflux disease 12/09/2017 DX:Gastroesophageal reflux disease Anxiety and depression 06/28/2017 DX:Anxiet y and depression; COMMENT: h/o ECT tx Neck pain on right side DX:Neck pain on right side Insomnia DX:Insomnia Tobacco abuse disorder DX:Tobacc o abuse disorder Vitamin D insufficiency DX:Vitam in D insufficiency Parkinson's disease ([facility] V24, [facility] V28) DX:Parkinson's disease ([facility]) ; COMMENT: dx by Dr. 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 DX:Mononeuropath y; COMMENT: per [id number] PCP note Back pain 09/09/2022 DX:Back pain; CO MMENT: per [id number] PCP note Nicotine dependence 09/09/2022 DX:Nicotine dependence; COMMENT: per [id number] PCP note Urinary tract infection 09/09/2022 DX:Urina ry tract infection; COMMENT: per [id number] PCP note UTI Septic 2018 and 2021 Pneumonia 09/09/2022 DX:Pneumonia; CO MMENT: per [id number] PCP note Covid 09/09/2022 DX:COVID; COMMEN T: per [id number] PCP note Family History Medical History Relation [...] Sign Reading Time Taken Comments Blood Pressure 118/78 12/25/2024 9:35 AM EST Pulse 90 12/25/2024 9:35 AM EST Temperature 36.6 C (97.9 F) 07/02/2024 6:57 PM EDT Respiratory Rate 15 07/02/2024 6:57 PM EDT Oxygen Saturation 95% 12/25/2024 9:35 AM EST Inhaled Oxygen Concentration - - Weight 64.1 kg (141 lb 6.4 oz) 12/25/2024 9:35 A M EST Height 152.4 cm (5') 12/25/2024 9:35 AM EST Body Mass Index 27.62 12/25/2024 9:35 AM EST Plan of Treatment Upcoming Encounters Date Type Department Care Team (Late st Contact Info) Description 02/19/2025 2:15 PM EST Ancillary Procedure Pulmonology [facility] [address] [phone] 02/19/2025 3:00 PM EST Office Visit Pulmonology [facility] [address] [phone] Cele Irvin MD [address] [place] [phone] Health Maintenance Due Date Last Done Comments [...] 02/09/2024 Colorectal Cancer Screening: Colonoscopy 03/07/2024 03/07/2019 Falls Risk Assessment 02/03/2025 02/04/2024 COVID-19 Vaccine ( season) 2025 10/13/2024, 11/09/2022, 11/19/2021, Additional history exists Diabetes: Annual GFR (Glomerular Filtration Rate) 07/02/2025 07/02/2024, 02/05/2024, 02/03/2024, Additional history exists Hypertension/CHF/CAD Annual BMP Blood Test 07/02/2025 07/02/2024, 02/05/2024, 02/03/2024, Additional history exists Cholesterol Screening (Lipid Panel) 01/13/2026 01/13/2021 Hepatitis C Screening Completed 01/13/2021 Zoster Vaccines Completed 02/17/2022, 11/08, 01/17/2014 RSV Immunization Adult Patients Completed 12/05/2022 Influenza Vaccine Completed 10/13/2024, , 11/21/2022, Additional history exists Pneumococcal Vaccine: 50+ Years Completed 10/13/2024, 11/08/2020, 12/13/2019, Additional history exists HIB Vaccines Aged Out No longer eligi [...] 1:13 PM EST Nicotine dependence, cigarettes, uncomplicated HM URINE ALBUMIN CREATININE RATIO Routine 01/20/2021 HM HEPATITIS C SCREENING Routine 01/13/2021 HEMOGLOBIN A1C Routine 01/13/2021 LIPID PANEL Routine 01/13/2021 COLONOSCOPY Routine 03/07/2019 from Last 3 Months or Most Recently Relevant to Health Maintenance Results * Comprehensive metabolic panel (07/02/2024 4:30 PM EDT) Sodium 135 133 - 145 mmol/L LAB CHEMISTRY METHOD 07/02/2024 5:14 PM [facility] Potassium 4.1 3.5 - 5.5 mmol/L LAB CHEMISTRY METHOD 07/02/2024 5:14 PM [facility] Chloride 105 96 - 110 mmol/L LAB CHEMISTRY METHOD 07/02/2024 5:14 PM [facility] CO2 22 21 - 32 mmol/L LAB CHEMISTRY METHOD 07/02/2024 5:14 PM [facility] Anion Gap 8 3 - 11 LAB CHEMISTRY METHOD 07/02/2024 5:14 PM [facility] Glucose 89 70 - 100 mg/dL LAB CHEMISTRY METHOD 07/02/2024 5:14 PM [facility] BUN 9 5 - 25 mg/dL LAB CHEMISTRY METHOD 07/02/2024 5:14 PM [facility] Creatinine 0.80 0.50 - 1.10 mg/dL LAB CHEMISTRY METHOD 07/02/2024 5:14 PM [facility] eGFR 78 >=60 mL/min/1. 73m2 LAB CHEMISTRY METHOD 07/02/2024 5:14 PM [facility] Comment:Calculation based on the Chronic Kidney Disease Epidemiology Collaboration (CKD-EPI) equation refit without adjustment for race. BUN/Creatinine Ratio 11.3 LAB CHEMISTRY METHOD 07/02/2024 5:14 PM [facility] Calcium 9.4 8.5 - 10.5 mg/dL LAB CHEMISTRY METHOD 07/02/2024 5:14 PM EDT [facility] AST (SGOT) 14 10 - 42 unit/L LAB CHEMISTRY METHOD 07/02/2024 5:14 PM EDT [facility] ALT (SGPT) 23 10 - 60 unit/L LAB CHEMISTRY METHOD 07/02/2024 5:14 PM EDT [facility] Alkaline Phosphatase 85 42 - 121 unit/L LAB CHEMISTRY METHOD 07/02/2024 5:14 PM EDT [facility] Total Protein 7.0 6.0 - 8.0 g/dL LAB CHEMISTRY METHOD 07/02/2024 5:14 PM EDT [facility] Albumin 3.7 3.2 - 5.0 g/dL LAB CHEMISTRY METHOD 07/02/2024 5:14 PM EDT [facility] Total Bilirubin 0.6 0.0 - 1.4 mg/dL LAB CHEMISTRY METHOD 07/02/2024 5:14 PM EDT [facility] Blood Venous blood specimen / Unknown Venipuncture / Unknown 07/02/2024 4:30 PM EDT 07/02/2024 4:48 PM EDT us Eloise Marsh DO LAB BLOOD ORDERABLES Hattie l Result [facility] [address] [place] [address], * CT LUNG SCREENING LOW DOSE (12/19/2022 1:13 PM EST) Anatomical Region Laterality Modality Computed Tomogra phy 12/14/2022 10:5 4 AM EST Narrative 12/19/2022 1:13 PM EST [facility] Diagnostic Imaging Department [address] [place] [address] Patient: ROSALINDA ROGERS /Age/Sex: 1950 - 72 - F Unit#: [id number] Location/Status: SPDICATLS/REG CLI Mnemonic/Ordering Site: CTLUNGLD/SPCT Ordering Physician: KAILEE ADAM MD CT Lung [...] Procedure Note Fam Floyd G - 03/16/2023 [facility] Diagnostic Imaging Department [address] [place] [id number] Patient: ROSALINDA ROGERS /Age/Sex: 1950 - 72 - F Unit#: [id number] Location/Status: SPDICATLS/REG CLI Mnemonic/Ordering Site: [facility] Ordering Physician: KAILEE ADAM MD CT Lung [...] 12/19/22 1302 Sign date/Time: 12/19/[address] [facility] Kailee Adam MD IMG CT PROCEDURES Final Result * Urine Albumin Creatinine Ratio (01/20/2021) Pathologist [facility] Urine Albumin Creatinine Ratio Abstracted Result [facility] Historical Provider HEALTH MAINTENANCE Final Result * Hepatitis C Screening (01/13/2021) [facility] Hepatitis C Screening Abstracted Result [facility] Provider HEALTH MAINTENANCE Final Result * (ABNORMAL) Hemoglobin A1c (01/13/2021) [facility] Hemoglobin A1C 7.3(A) <=6.5 % Blood Venous blood specimen / Unknown Result [facility] Historical Provider LAB BLOOD ORDERABLES Hattie l Result * (ABNORMAL) Lipid panel (01/13/2021) [facility] LDL/HDL Ratio 7(A) 0 - 4 Triglycerides 458(A) 0 - 150 mg/dL Cholesterol 256(A) 0 - 200 mg/dL HDL 39 >=39 mg/dL LDL Cholesterol 126(A) 0 - 100 mg/dL Blood Venous blood specimen / Unknown Result [facility] Provider LAB BLOOD ORDERABLES Hattie l Result * Colonoscopy (03/07/2019) [facility] Colonoscopy No Interpretation , Abstracted Anatomical Region Laterality Modality Other Result [facility] Historical Provider HEALTH MAINTENANCE Final Result from Last 3 Months or Most Recently Relevant to Health Maintenance Insurance [facility] MEDICARE Member Subscriber Plan / Payer (Ef fective 2016-Present) Name:ROSALINDA ROGERS Relation to Subscriber:Self Name:Rosalinda Rogers Payer ID:[id number] Group ID:[id number] Type:Not on file Address: [facility] [id number] [id number] Advance Directives Documents on File Type Date Recorded Patient Engineering Technical Analyst Expl anation Health Care Decision (hx) 03/22/2021 [...] DIRECTIVE Health Care Decision (hx) 03/22/2021 Mireya Charles ADVANCE DIRECTIVE * Full Code - Default [...] Second Alternate Health Care Agent Care Teams Satellite Manager Relationship Specialty Start Date End Date Mariella Reina MD [address] [place] [phone] PCP - General Internal Medicine 10/07/21
--- OUTSIDE RECORDS SUMMARY | 2025-01-01 19:07 | XMS_ITS | Data Portability ---
Author Organization [place] - [facility] Address [address] [place] [id number] Care Team Providers Care Automatic Engraver Name Role Phone LUCIEN GONZALEZ Primary Care Provider Assessment Encounter Date Assessment Date Assessment LastModified by Organization Details LastModified Time 03/30/2020 03/30/2020 Overview/History : Pt is a 70yo F with PMH sig for HLD, COPD, PTSD, DM that is diet controlled who is an active smoker. Pt reports that over the last month she has had progressively worsening sore throat, earache, sinus pressure, SOB and OCHOA. She reports chills and sweats but denies fever. She denies cough as well. She did have dirrhea about 1 month ago but it was associated with a Zpak that her PCP gave her for her URI sx. URI sx failed to improve and diarrhea resolved once she stoped the Zpak. Exam: Pt is A/Ox3, non-toxic appearing, VSS, HRR, resp reg and unlabored on RA, lungs pos for wheezes bilat. HEENT exam pos for erythema to the right ear canal, boggy and erythemic turbinates, mild cobble stoning, frontal and maxiallary sinus tenderness. DDx considered, but not limited to: COPD exacerbation: likely given reports of progression of SOB and OCHOA with wheezing noted to bilat lung carrasco. Sinus infection: likely given sinus tenderness, earache, sore throat for the last month that has worsened over the last 2 weeks. COVID: unlikely given sx have been persistent for 2 weeks PNA: unlikely, no rhonchi noted, pt afebrile, no cough report Bronchitis: possible given hx of COPD, exacerbation of COPD more likely given lack of cough and pt is afebrile. Work up/Results: no further work up indicated at this time Plan/Discussion: The details of this patient case and the plan of care were discussed with the Virtual Physician application developer for [facility], Dr. Workman. Given low concern for COVID and high suspicion for COPD exacerbation pt started on prednisone burst. Doxy added in for sinus infection given pattern of progressively worsening URI sx over the last month that did no respond to a Zpak last month. Pt advised that common se of doxy are n/v/d and to take with food to prevent GI upset. Advised on importance of completing the full course of antibiotics. ER precautions also given. Patients PCP contacted and updated on patient status. Patient verbalized understanding of discharge instructions and when to follow up with PCP/911/ED as needed. Patient in agreement with current plan and treatment. Time On Scene with Patient: 00:33:34 [email or web address] Not available 03/30/2020 14:39:38 04/27/2020 04/27/2020 Overview/History : Pt is a 70yo F with PMH sig for COPD who is an active smoker, PTSD, DM and HLD. Pt reports that her earache has persisted since she was last seen in Mar. She reports that she recieved her second COVID shot on and at 199 today she developed sinus pressure and ELLISON that woke her up. She denies any change in her SOB from baseline. Exam: Pt is A/Ox3, non-toxic appearing, VSS, HRR, resp reg and unlabored on RA, lung pos for wheezes bilat. HEENT exam WNL except for frontal and maxillary sinus tenderness. DDx considered, but not limited to: S.E. to COVID Vaccine: likely given timeframe of sx onset URI: possible, sx have been present for less than 24hrs, earpain is chronic at this time Sinus infection: possible given sinus pain, more likely viral if infectious cause Work up/Results: referred to ENT Plan/Discussion: Pt advised that sinus pressure and ELLISON may be r/t recent second dose of COVID vaccine. Pt advised on timeframes for sx r/t vaccination, URI and bacterial causes and when to seek care for each. Advised on OTC medications to help with sx. Given ear pain has persistent despite oral and local antibiotics and steroids pt given referral to ENT for futher evaluation. Pt was on oral doxy 1 month ago, will hold off on represcirbing antibiotics at this time and opt for watchful waiting. Pt in agreement with this plan. Patients PCP contacted and updated on patient status. Patient verbalized understanding of discharge instructions and when to follow up with PCP/911/ED as needed. Patient in agreement with current plan and treatment. In order to obtain further information and compare any laboratory results/values, I have accessed old patient records. This information was pertinent in my medical decision making today. Time On Scene with Patient: 00:31:48 [email or web address] Not available 04/27/2020 20:53:20 Plan of Treatment Reminders Order Date Submit Date Provider Last Modified By Organization Details Last Modified Time Details Appointments None recorded. Lab None recorded. Referral ENT referral 2020 021 [email or web address] Ent [facility] , [address], [address], [place], [address], 20:23:48 Procedures None recorded. Surgeries None recorded. Imaging None recorded. Medication Orders prednison e 20 mg tablet 2020 021 [facility][id number], [address], [place], [id number], 20:04:41 prednison e 10 mg tablet 2020 021 [facility] #[id number], [address], [place], [id number], 20:04:32 doxycycli ne hyclate 100 mg capsule 2020 021 [facility] #[id number], [address], [place], [id number], 20:03:20 doxycycli ne hyclate 100 mg capsule 2020 021 [facility] #[id number], [address] [place] [address], [id number], 20:03:20 Patient TargetsNo targets recorded. Patient Instructions Encounter Date Encounter Id Patient Instructions Last Modified By Organization Details Last Modified Time 03/30/2020 [id number] Sinusitis Instructions Basic Information Sinusitis is an inflammation of the lining of the sinuses. Sinuses are lined with mucous membranes and are filled with air. When sinuses become blocked, fluid can back up within sinuses and this creates a condition where the sinuses become swollen and can cause pain and other symptoms. Sometimes, this will allow germs such as viruses, bacteria and mold to grow and cause infection. Sinuses can become blocked due to the common cold, environmental allergies, deformities such as nose injuries or deviated septum, or growths such as polyps. Symptoms include facial pain and pressure, nasal discharge, ear pressure, having to clear the throat often, dental pain and diminished sense of smell and taste. At times fever and bad breath occur. Most cases of sinusitis (90-98 %) are viral. True bacterial sinusitis is actually quite rare. A popular belief is that is your nasal discharge is green, then it is bacterial and you need an antibiotic. Antibiotics are usually not indicated unless the following is present: symptoms last for 10 days of more and are not improving fever of at least 102 degrees facial pain that is constant for 3-4 days in a row a typical cold resolves after one week and then sudden return of symptoms with increased nasal discharge, headache and sinus pressure Instructions Medications: Decongestants: Cyqn-zjf-solazrd decongestants such as sudafed are helpful. You should not use these for prolonged periods of time and they may not be contraindicated due to drug interactions with your regular medications or if you have medical problems such as high blood pressure. Ask your [employer]. decongestant sprays such as Afrin and Marcel-synephrine may also help your symptoms. However, if theses are used for over 3 days in a row, the congestion can actually get worse when you stop using them. So, use sparingly. If you have high blood pressure, your [employer] may not recommend use. nasal steroid drops/spray These MAY help decrease the inflammation in the mucous membrane lining of the sinuses (there is no strong evidence to support this claim). They work best with regular use while you have your symptoms. They also work best if used a few minutes after sinus irrigation treatment (see below) Pain relief: Ibuprofen and Tylenol may be used for comfort. The maximum dose of Tylenol for adults is 4000 mg/day (or 2 extra strength tablets 4 times per day) and the recommended dose of Ibuprofen for adults 400 mg every 6 hours. Both of these medicines work best if you take them regularly for 3 days. Please follow the recommended dosage instructions on the bottle. Antibiotics: If your provider prescribed these for you, be sure that you complete the whole course. Self Care: Sinus irrigations: Obtain an ear bulb syringe from the pharmacy (a typical nose syringe, used often for infants, is too small). Cut the tip of the syringe so that it can fit snuggly in your nostril. Mix a cup of warm water with a teaspoon of non-iodized table salt and generous pinch of baking soda. Draw up some of the solution into the syringe. Plug one side of your nose while you insert the bulb syringe into the other side. Squeeze the syringe firmly but gently while you b reathe in the solution through your nose. Alternate both sides until you complete the cup of solution. Do this 2-4 times per day. After each irrigation, be sure to clean the bulb syringe in a dilute bleach solution and rinse well. Local heat: Moisten a washcloth and place this over your sinuses (cheeks and around the eyes). Over the washcloth, place a heating pad set on low. Do this for 20 minutes 4-6 times per day Hydration: drink eight, 8 oz. glasses of clear liquid per day Follow up: See your regular MD or Ear Nose and Throat doctor (if recommended by your provider) within 10 days for follow up. Seek Care Immediately if you: -develop a rash -notice significant redness or swelling around your eye -have fever that does not respond to tylenol/ibuprofen or remains >101.4 (adults) > 100.4 (children) for greater than 3 days -have a stiff neck or severe headache If you develop any new or worsening symptoms and need after hours care, please go to nearest ER and/or call 911. If you have additional concerns or develop a change in your condition between 8am-10pm, please [facility] at [phone] to help navigate your care. [email or web address] Not available 03/30/2020 13:56:13 04/27/2020 [id number] Thank you for yo ur visit with [facility] today. We cannot always find the exact cause of your symptoms during your initial visit. You were seen today for sinus pressure, headache and ear pain. The ear pain has been persistent for over a month and a referreral to ENT has been placed for further evaluation. Your other symptoms started shortly after your second COVID shot and are likely related to your immune response. If your symptoms fail to improve over the next day or so you may have a viral upper respiratory infection. These typically last 7-10 days. If your symptoms persist after that you may need antibiotics, but as you were recently on antibiotics and symptoms may be related to your vaccine we recommend watchful waiting prior to restarting antibiotics at this time. Please follow up with your primary care provider or specialist within 2-3 days to be rechecked or seek medical attention if your symptoms do not go away or get worse. If you develop any new or worsening symptoms and need after hours care, please go to nearest ER and/or call 911. If you have additional concerns or develop a change in your condition between 8am-10pm, please call [facility] at [phone] to help navigate your care. [email or web address] Not available 04/27/2020 20:23:22 Reason for Referral ENT Referral for Pain of ear right otalgia for over one month despite tx with antibiotic drops and oral antibiotics and steroids Referring Physician: Tanya Marquez, Emergency Medicine, Encounter Date: 04/27/2020 Medical Equipment None Reported. Allergies Allergen ID Allergen Name Allergen Category Reaction Reaction Severity Criticality Documentation Date Start Date Code Code System Note Provider Name and Address Organization Details Recorded Time 133515 ketorolac medicatio n Not available Not available Not available 03/30/2020 30802 RxNorm TANYA MARQUEZ NP [address] [place], [address], [place] [facility] 13:49:49 [id number] morphine medicatio n Not available Not available Not available 03/30/2020 7052 RxNorm TANYA MARQUEZ NP [address] [place], [address], [place] [facility] 13:49:57 072104 oxycodone medicatio n Not available Not available Not available 03/30/2020 7804 RxNorm TANYA MARQUEZ , [employer] [address], [place], [address], [place] [facility] 13:50:07 [id number] tramadol medicatio n Not available Not available Not available 03/30/2020 09963 RxNorm TANYA MARQUEZ , [employer] [address], [place], [address], [place] [facility] 13:50:22 [id number] Product containin g penicilli n (product) medicatio n Not available Not available Not available 03/30/2020 81612 8001 SNOMED TANYA MARQUEZ , [employer] [address], [place], [address], [place] [facility] 13:50:30 [id number] Substance with sulfonami de structure and antibacte rial mechanism of action (substanc e) medicatio n Not available Not available Not available 03/30/2020 53716 8003 SNOMED TANYA MARQUEZ , [employer] [address], [place], [address], [place] [facility] 13:50:40 [id number] codeine medicatio n Not available Not available Not available 03/30/2020 2670 RxNorm TANYA MARQUEZ , [employer] [address], [place], [address], [place] [facility] 13:50:47 Medications Name Sig Start Date Stop Date Status Note LastModified by Organization Details LastModified Time celecoxib 200 mg capsule TAKE ONE CAPSULE BY MOUTH 2 (two) times a day active Not Available Not Available No t Available prednisone 10 mg tablet Take 4 tablets every day by oral route. 04/27 completed Not Available Not Available Not Available doxycycline hyclate 100 mg capsule TAKE 1 CAPSULE BY MOUTH TWICE DAILY FOR 10 DAYS 04/27 completed Not Available Not Available Not Available paroxetine 10 mg tablet TAKE ONE TABLET BY MOUTH AT SUPPER 04/27 completed Not Available Not Available Not Available tizanidine 2 mg tablet Take 1-2 Tabs by mouth every 8 hours as needed for Other (MUSCLE SPASMS). active Not Available Not Available No t Available cetirizine 10 mg tablet TAKE ONE TABLET BY MOUTH DAILY NEEDED FOR ALLERGIES active Not Available Not Available No t Available azithromyci n 250 mg tablet TAKE 2 TABLETS BY MOUTH NOW THEN TAKE ONE TABLET BY MOUTH ONCE A DAY FOR 4 MORE DAYS 04/27 completed Not Available Not Available Not Available prednisone 20 mg tablet TAKE 2 TABLETS BY MOUTH EVERY DAY FOR 4 DAYS 04/27 completed Not Available Not Available Not Available topiramate 25 mg tablet TAKE ONE TABLET BY MOUTH 2 (two) times a day active Not Available Not Available No t Available simvastatin 40 mg tablet TAKE ONE TABLET BY MOUTH DAILY AT BEDTIME active Not Available Not Available No t Available levothyroxi ne 75 mcg tablet TAKE ONE TABLET BY MOUTH DAILY active Not Available Not Available No t Available lorazepam 0.5 mg tablet TAKE ONE TABLET BY MOUTH 3 (THREE) TIMES A DAY active Not Available Not Available No t Available paroxetine 20 mg tablet TAKE ONE TABLET BY MOUTH DAILY AT SUPPER active Not Available Not Available No t Available nicotine 21 mg/[address] patch Place 1 Patch onto the skin every 24 hours for 30 days. 04/27 completed Not Available Not Available Not Available omeprazole 20 mg capsule,del ayed release TAKE ONE CAPSULE BY MOUTH DAILY active Not Available Not Available No t Available montelukast 10 mg tablet TAKE ONE TABLET BY MOUTH AT BEDTIME active Not Available Not Available No t Available fluticasone 100 mcg-salmete rol 50 mcg/dose blistr powdr for inhalation Inhale 1 puff twice a day by inhalatio n route. active Not Available Not Available No t Available propranolol 20 mg tablet TAKE ONE TABLET BY MOUTH 3 (THREE) TIMES A DAY active Not Available Not Available No t Available fluticasone propionate 50 mcg/actuati on nasal spray,suspe nsion SPRAY ONCE INTO EACH NOSTRIL 2 (two) times a day. head down active Not Available Not Available No t Available neomycin-po lymyxin-hyd rocort 3.5 mg-10,000 unit/mL-1 % ear drops,susp INSTILL THREE DROPS IN THE RIGHT EAR 4 (FOUR) TIMES DAILY FOR 10 DAYS. tilt head so ear TO be treated points towards THE ceiling. active Not Available Not Available No t Available escitalopra m 20 mg tablet TAKE 1 HALF TABLET BY MOUTH IN THE MORNING FOR 1 WEEK THEN 1 TABLET BY MOUTH IN THE MORNING active Not Available Not Available No t Available Vitamin D3 25 mcg (1,000 unit) capsule TAKE ONE CAPSULE BY MOUTH DAILY active Not Available Not Available No t Available topiramate 50 mg tablet TAKE ONE TABLET BY MOUTH 2 (two) times a day active Not Available Not Available No t Available nitrofurant oin monohydrate /macrocryst als 100 mg capsule TAKE ONE CAPSULE BY MOUTH 2 (two) times a day 04/27 completed Not Available Not Available Not Available Nyamyc 100,000 unit/gram topical powder APPLY TO THE AFFECTED AREA TOPICALLY 3 (THREE) TIMES A DAY NEEDED 04/27 completed Not Available Not Available Not Available tizanidine 04/27 completed Not Available Not Available Not Available levothyroxi ne 04/27 completed Not Available Not Available Not Available lorazepam 04/27 completed Not Available Not Available Not Available propranolol 04/27 completed Not Available Not Available Not Available simvastatin 04/27 completed Not Available Not Available Not Available Vitamin D 04/27 completed Not Available Not Available Not Available montelukast 04/27 completed Not Available Not Available Not Available cetirizine 04/27 completed Not Available Not Available Not Available Topamax 04/27 completed Not Available Not Available Not Available celecoxib 04/27 completed Not Available Not Available Not Available ProAir HFA active Not Available Not Av ailable Not Available FreeStyle Lite Strips USE TO TEST FINGER STICK BLOOD SUGAR DAILY 04/27 completed Not Available Not Available Not Available cholecalcif pedro (vitamin D3) 50 mcg (2,000 unit) tablet TAKE ONE TABLET BY MOUTH DAILY active Not Available Not Available No t Available Latuda 40 mg tablet TAKE ONE TABLET BY MOUTH 1 TIME PER DAY AT DINNER. TAKE WITH FOOD (AT least 350 calories) . discontin ue rexulti active Not Available Not Available No t Available Inject Ease Lancets 28 gauge USE TO TEST FINGER STICK BLOOD SUGAR ONCE DAILY 04/27 completed Not Available Not Available Not Available Stiolto Respimat 2.5 mcg-2.5 mcg/actuati on solution for inhalation INHALE 2 PUFFS BY MOUTH INTO THE lungs EVERY DAY active Not Available Not Available No t Available Stiolto Respimat 04/27 completed Not Available Not Available Not Available Vraylar 1.5 mg capsule TAKE ONE CAPSULE BY MOUTH DAILY 04/27 completed Not Available Not Available Not Available Vraylar 4.5 mg capsule TAKE ONE CAPSULE BY MOUTH EVERY MORNING active Not Available Not Available No t Available Vraylar 3 mg capsule TAKE ONE CAPSULE BY MOUTH DAILY 04/27 completed Not Available Not Available Not Available Austedo 9 mg tablet TAKE 2 TABLETS BY MOUTH 2 (two) times a day active Not Available Not Available No t Available Ingrezza 40 mg capsule TAKE ONE CAPSULE BY MOUTH DAILY active Not Available Not Available No t Available Ingrezza 04/27 completed Not Available Not Available Not Available Vitals Date Recorded Heart rate Body temperature Oxygen saturation Respiratory rate Respiratory rate Systolic And Diastolic Provider Name and Address Organization Details Last Updated DateTime 1 78 /min 97.3 [degF] 95 % 2 /min 24 /min 162/84 mm[Hg] Not Available [facility] 13:54:58 Date Recorded Heart rate Body temperature Oxygen saturation Respiratory rate Systolic And Diastolic Provider Name and Address Organization Details Last Updated DateTime 1 73 /min 96.7 [degF] 96 % 22 /min 140/70 mm[Hg] Not Available [facility] 20:06:36 Social History Question Answer Notes LastModified by Organizat ion Details LastModified Time Tobacco Smoking Status Current Every Day Smoker TANYA MARQUEZ, JEANNE [address], [place], [address], [place] [facility] 03/30/2020 13:54:50 Do You Have An Advance Directive? No Information not available 03/30/2020 What Is Your Code Status? Full Code Information not available 03/30/2020 Within The Past 12 Months, Has It Happened That The Food You Bought Just Didn't Last And You Didn't Have Money To Get More. No Information not available 03/30/2020 Within The Past 12 Months, Have You Worried That Your Food Would Run Out Before You Got Money To Buy More. No Information not available 03/30/2020 Fall Risk: Do You Feel Unsteady When Standing Or Walking? No Information not available 03/30/2020 We Know That How And When People Interact With Friends And Family Can Be Very Different From Person To Person. How Often Do You Have The Opportunity To See Or Talk To People That You Care About And Feel Close To? (Ex: Talking To Friends On The Phone Or Visiting Friends Or Family Or Going To Adventist Or Club Meetings) 3 Or 4 Times Per Week Information not available 03/30/2020 Excessive Alcohol Or Drug Use No Information not available 03/30/2020 We Know From Many Of Our Patients That Covering All Of Their Costs Can Be Difficult At Times. This Can Cause Stress And Impact Health. In The Past Year, Have You Been Unable To Get Any Of The Following When It Was Really Needed? No Information not available 03/30/2020 What Is Your Housing Situation Today? I Have Housing Information not available 03/30/2020 Would You Like Help Connecting To Resources? None Information not available 03/30/2020 How Much Tobacco Do You Smoke? 1 PPD Information not available 03/30/2020 Sex: Unknown Functional Status None recorded. Mental Status None recorded. Family History Relationship Description Onset Age of this Age Resolved Age Notes LastModified by Organization Details LastModified Time Father Malignant neoplastic disease [email or web address] Not available 03/30 13:56:04 Medical History Condition Response Diabetes Y Coronary Artery Disease N Cancer N Stroke N COPD Y Depression Y Asthma N High Cholesterol Y Pulmonary Embolism N Hypertension N Kidney Disease N Gynecological HistoryNo gynecological history recorded. Obstetrics History GPAL:G 0 P 0 0 0 0 Past Encounters Encounter ID Performer Location Encounter Start Date Encounter Closed Date Diagnosis/Indication Diagnosis SNOMED-CT Code Diagnosis ICD10 Code Diagnosis IMO Codes Diagnosis Note [id number] TANYA MARQUEZ NP [facility] - HOME [address] [facility] [place], [place] [address] 03/30/2020 13:47:55 03/31/2020 13:37:49 Acute exacerbation of chronic obstructive pulmonary disease 063059774 J44.1 Acute sinusitis 96373783 J01.90 [id number] TANYA MARQUEZ NP [facility] [address] [place] [address] 04/27/2020 20:01:27 04/30/2020 15:49:10 Maxillary sinus pain 493630904 R51.9 Pain of ear 796846293 H9 2.09 Administra tion of SARS-CoV-2 antigen vaccine 282965285 Z23 Chronic ob structive pulmonary disease 99558432 J44.9 Health Concerns Section Related Observation LastModified by Organization Detai ls LastModified Time None Recorded Concern Status LastModified by Organization Details LastModified Time None Recorded Advance Directives Directive N: Payers Insurance Date Sequence Insurance Name Policy Number Policy Monsalve Covered Member ID Monsalve Member ID Guarantor Name 04/27/2020 1 [facility] - DOS PRIOR TO 2022 - DUAL ELIGIBLE (MEDICARE REPLACEMENT/ADV ANTAGE - HMO) Rosalinda Johnson [id number] Rosalinda Johnson 03/30/2020 1 *SELF PAY* Rosalinda Johnson [id number] Rosalinda Johnson 03/31/2020 2 MEDICARE [place]: [employer] Rosalinda Johnson [id number] Rosalinda Johnson 04/30/2020 2 MEDICARE [place]: [employer] Rosalinda Johnson [id number] Rosalinda Johnson 04/27/2020 1 [facility] - DOS PRIOR TO 2022 - DUAL ELIGIBLE (MEDICARE REPLACEMENT/ADV ANTAGE - HMO) Rosalinda Johnson [id number] Rosalinda Johnson 04/27/2020 1 [employer] B-[facility]: [employer] Rosalinda Johnson [id number] Rosalinda Johnson Notes Date Note Type Note Provider Name and Address Organization Details Recorded Time 03/30/2020 text/html General HPI Template - DHReported by Patient Pt reports a 2 week hx of sinus pressure and a 1 month hx of bilat earache with the right worse then the left. She was placed on a Zpak by her PCP a month ago. She took 4 days of the antibiotic without effect, states the antibiotic gave her diarrhea and because her sx were not improving she didn't take the last dose. States the script was given over the phone, she has not been seen by her PCP for these sx. Pt reports SOB over the last 2 weeks, she reports fluctuating between chills and sweats, denies any change in sense of taste/smell. Reports she did get her first COVID vaccine 2 days ago. Reports a mild sore throat on the right side, denies a cough, ELLISON, lightheadedness, dizziness, CP. states diarrhea resolved once she stopped the antibiotic. TANYA MARQUEZ NP [address], [place], [id number], [place] [facility] 03/30/2020 14:39:45 04/27/2020 text/html Pt reports eye and head pressure. States she feels like her eyes are sinking into her head. She reports earache as well. She states that sx started around 0200 today, it woke her up. She had her second COVID shot on Wednesday during the day. Pt reports she has been having ear pain since Mar. She called and followed up with her PCP and they would not see her in the office d/t her being sick. They prescribed some antibiotic ear drops at that time. TANYA MARQUEZ NP [address], [place], [id number], [place] [facility] 04/27/2020 20:53:28 OBGyn Episode No OBEpisode recorded.
== END 2025-01-01 16:17 | disposition home or self-care (01) ==
PROVIDERS: PCP Hospitalist; Visit Provider Psychiatry & Neurology Neurology
DX: G24.01 Drug induced subacute dyskinesia (principal); G24.3 Spasmodic torticollis; R25.1 Tremor, unspecified
CPT/HCPCS: 99214; G2211

== ENCOUNTER → 2025-01-01 14:09 | Outpatient (BNVA) | payer OTHER, SELFPAY | PROVIDERS: PCP Hospitalist; Visit Provider Psychiatry & Neurology Neurology | DX: G24.3 Spasmodic torticollis (principal); G24.01 Drug induced subacute dyskinesia | CPT/HCPCS: 99212 ==